=== PATIENT | male | born 1940 | race Caucasian/White ===

== ENCOUNTER 2016-11-25 19:50 | Observation (INO) | payer OTHER ==
--- NOTE | 2016-11-25 20:05 | EDPHY ---
General - History Smoking Status: Never smoked Narrative: CHIEF COMPLAINT: Fall from chair HISTORY OF PRESENT ILLNESS: Patient arrives by EMS after reportedly falling from his chair. Patient resides at [facility] has an independent living resident. Reportedly, the patient was drinking alcohol this evening during the movie when he fell out of his chair. There is no A&O entirely what happened is he is amnestic to events. EMS said that he was unsteady on his feet and appeared intoxicated. He has skin tears over his elbows. He does not provide any specific complaints. He is awake and conversing with this, but he will not provide any meaningful information. He is moving all 4 extremities spontaneously and very forcefully. No other history obtainable. He seen at time of arrival. REVIEW OF SYSTEMS: Ten systems reviewed and are negative unless otherwise noted in the HPI EXAMINATION General Appearance: Alert, no distress Head: normocephalic, atraumatic. No hematoma. No depression. No Jones sign. No raccoon eyes. Eyes: Pupils equal and round, no conjunctival pallor or injection. Bilateral arcus senilis ENT, Mouth: Mucous membranes moist. Uvula midline. No erythema or edema. Neck: Normal inspection, supple, non-tender. No crepitus. No step-off. No deformity. Respiratory: Lungs are clear to auscultation. No wheezing, rhonchi or crackles. Cardiovascular: Regular rate and rhythm. No murmur. Pulses intact distally symmetrically in the radial and DP 2+ Gastrointestinal: Abdomen is soft and nontender. No tympany. No rigidity. No guarding. Back: non-tender, no bony abnormalities. No signs of trauma. No crepitus, step -off or deformity. Neurological: Alert to person. Disoriented to place and time. No dysmetria. No pronator drift. Skin: Warm and dry, no rash. Superficial skin tears on the posterior elbows bilaterally. No lacerations noted. Extremities: Ranging all 4 extremities spontaneously with symmetric strength. Following commands with the legs and arms. Psychiatric: Appears intoxicated DIFFERENTIAL DIAGNOSES: Including but not limited to closed head injury, intracranial hemorrhage, concussion, sprain, strain, fracture, intoxication, skin tears MDM: 8:05 p.m. Apparent mechanical fall from seated position. The patient appears very intoxicated and is having difficulty ambulating without assistance. Given his intoxication I have ordered CT scans of the head and neck as well as a chest x- ray. He is moving all 4 extremities spontaneously without hesitation and good strength. No other outward signs of trauma other than mild skin tears over the elbows. 8:55 p.m. Laboratory studies are unremarkable with exception of blood alcohol of 250. CT scans and chest x-ray are pending at this time. Given the level intoxication I am not comfortable sending the patient home to his own accord. I will plan for admission for observation until the patient is able to ambulate on his own. 9:00 p.m. Notified by radiologist Dr. Nick. CT scan of the head is unremarkable for any acute findings, there is noted atrophy. CT scan of the cervical spine is unremarkable. There is a questionable deformity on T1. After discussing the history with radiologist, she feels that this is a negative scan at this time. 9:35 p.m. Patient is acutely intoxicated with blood alcohol 247. He is unable to ambulate on his own. He is not stable for discharge home to his own care at this time. CT scans are unremarkable. Chest x-ray as interpreted by me as no acute findings. Discussed the case with Dr. Savage, and she will admit the patient observation. SUPERVISION: This patient was independently evaluated without direct examination by the attending physician. Case was discussed with attending physician. Case discussed with Dr. Vasquez. (Wayne Treviño) - Diagnostics Imaging Results: Imaging Impressions Cervical Spine CT 11/25/16 20:00 Impression: Normal. Findings and recommendations discussed with Wayne Treviño at 2045 hour, 11/25. Final report concurs with initial preliminary interpretation. Head CT 11/25/16 20:00 Impression: Atrophy and microvascular ischemic disease. Findings and recommendations discussed with Wayne Treviño at 2100 hour, 11/25. Final report concurs with initial preliminary interpretation. Discussion: PHYSICIAN DOCUMENTATION: The patient was evaluated and managed by the Physician Commercial Roofer. My co- signature indicates that I have reviewed this chart and I agree with the findings and plan of care as documented. I am the secondary supervising physician. (Triston Vasquez) - Objective Vital Signs: Initial Vital Signs Temperature (C) 96.8 F 11/25/16 19:59 Heart Rate 89 11/25/16 19:59 Respiratory Rate 16 11/25/16 19:59 Blood Pressure 133/78 H 11/25/16 19:59 O2 Sat (%) 93 11/25/16 19:59 O2 Delivery Mode Room Air Allergies/Adverse Reactions: No Known Allergies Allergy (Verified 06/04/16 11:18) Home Medications: Medication Instructions Recorded Acetaminophen [Tylenol 325mg (*)] 650 mg PO Q4HRS PRN #0 tab 06/05/16 oxyCODONE/APAP 5/325 [Percocet 1 - 2 tab PO Q4H PRN #12 tab 06/08/16 5/325 (*)] Lisinopril [Zestril 5 mg (*)] 5 mg PO DAILY 11/25/16 Laboratory Results: Laboratory Results 11/25/16 19:56 11/25/16 19:56 11/25/16 11/25/16 11/25/16 19:56 19:56 19:56 WBC 7.76 10^3/uL 10^3/uL (3.80-9.50) RBC 4.10 10^6/uL L 10^6/uL (4.40-6.38) Hgb 14.2 g/dL g/dL (13.7-17.5) Hct 40.5 % % (40.0-51.0) MCV 98.8 fL fL (81.5-99.8) MCH 34.6 pg H pg (27.9-34.1) MCHC 35.1 g/dL g/dL (32.4-36.7) RDW 13.2 % % (11.5-15.2) Plt Count 161 10^3/uL 10^3/uL (150-400) MPV 10.9 fL fL (8.7-11.7) Neut % (Auto) 56.4 % % (39.3-74.2) Lymph % (Auto) 30.9 % % (15.0-45.0) [place] % (Auto) 11.2 % % (4.5-13.0) Eos % (Auto) 0.8 % % (0.6-7.6) Baso % (Auto) 0.6 % % (0.3-1.7) Nucleat RBC Rel Count 0.0 % % (0.0-0.2) Absolute Neuts (auto) 4.37 10^3/uL 10^3/uL (1.70-6.50) Absolute Lymphs (auto) 2.40 10^3/uL 10^3/uL (1.00-3.00) Absolute Monos (auto) 0.87 10^3/uL H 10^3/uL (0.30-0.80) Absolute Eos (auto) 0.06 10^3/uL 10^3/uL (0.03-0.40) Absolute Basos (auto) 0.05 10^3/uL 10^3/uL (0.02-0.10) Absolute Nucleated RBC 0.00 10^3/uL 10^3/uL (0-0.01) Immature Gran % 0.1 % % (0.0-1.1) Immature Gran # 0.01 10^3/uL 10^3/uL (0.00-0.10) PT 14.7 SEC SEC (12.0-15.0) INR 1.15 (0.83-1.16) APTT 33.5 SEC SEC (23.0-38.0) Sodium 142 mEq/L mEq/L (134-144) Potassium 4.4 mEq/L mEq/L (3.5-5.2) Chloride 108 mEq/L mEq/L (97-110) Carbon Dioxide 20 mEq/l L mEq/l (22-31) Anion Gap 14 mEq/L mEq/L (8-16) BUN 16 mg/dL mg/dL (7-23) Creatinine 1.1 mg/dL mg/dL (0.7-1.3) Estimated GFR > 60 Glucose 86 mg/dL mg/dL (70-100) Calcium 9.3 mg/dL mg/dL (8.5-10.4) Ethyl Alcohol 247 mg/dL H mg/dL (0-10) Medications Given: Discontinued Medications Sodium Chloride (Ns) 500 mls @ 0 mls/hr IV ONCE ONE PRN Reason: Wide Open Stop: 11/25/16 20:08 Last Admin: 11/25/16 20:45 Dose: 500 mls Departure - Departure Disposition: [facility] Acute Clinical Impression: Skin tear Acute alcohol intoxication Qualifiers: Complication of substance-induced condition: uncomplicated Qualified Code(s): F10.120 - Alcohol abuse with intoxication, uncomplicated Closed head injury Qualifiers: Encounter type: initial encounter Qualified Code(s): S09.90XA - Unspecified injury of head, initial encounter Condition: Good Referrals: JENY DUBOSE [Other] - As per Instructions
[2016-11-25] MEDS ORDERED: NS 500 ML IV ONE (20:07)
[2016-11-25 20:10] LABS: % IMMATURE GRANULYOCYTES 0.1 % (0.0-1.1); ABSOLUTE IMMATURE GRANULOCYTES 0.01 10^3/uL (0.00-0.10); ADD DIFF? NO; ADD MORPH? NO; ADD SCAN? NO; ATYPICAL LYMPHOCYTE FLAG 30 (0-99); FRAGMENT RBC FLAG 0 (0-99); HEMATOCRIT 40.5 % (40.0-51.0); HEMOGLOBIN 14.2 g/dL (13.7-17.5); LEFT SHIFT FLG 0 (0-99); LIPEMIA HEMOLYSIS FLAG 90 (0-99); MEAN CELL HEMOGLOBIN 34.6 pg (27.9-34.1); MEAN CELL HEMOGLOBIN CONCENTR. 35.1 g/dL (32.4-36.7); MEAN CELL VOLUME 98.8 fL (81.5-99.8); MEAN PLATELET VOLUME 10.9 fL (8.7-11.7); PLATELET CLUMPS FLAG 0 (0-99); PLATELET COUNT 161 10^3/uL (150-400); RED CELL DISTRIBUTION WIDTH 13.2 % (11.5-15.2)
[2016-11-25 20:15] LABS: ANION GAP 14 mEq/L (8-16); CALCIUM 9.3 mg/dL (8.5-10.4); CARBON DIOXIDE 20 mEq/l (22-31); CHLORIDE 108 mEq/L (97-110); CREATININE 1.1 mg/dL (0.7-1.3); ETHANOL SERUM 247 mg/dL (0-10); GLOMERULAR FILTRATION RATE > 60; GLUCOSE 86 mg/dL (70-100); POTASSIUM 4.4 mEq/L (3.5-5.2); SODIUM 142 mEq/L (134-144)
[2016-11-25 20:16] LABS: INR 1.15 (0.83-1.16); PROTIME(PATIENT) 14.7 SEC (12.0-15.0)
[2016-11-25 20:17] LABS: APTT 33.5 SEC (23.0-38.0)
[2016-11-25] MEDS ORDERED: ACETAMINOPHEN 325 MG TAB PO PRN (21:40)
[2016-11-25] MEDS ORDERED: ONDANSETRON DISINTEGRATING 4 MG TAB PO PRN (21:40)
[2016-11-25] MEDS ORDERED: ONDANSETRON 4 MG/2 ML VIAL IVP PRN (21:40)
[2016-11-25] MEDS ORDERED: NS 1,000 ML IV SCH (21:45)
--- NOTE | 2016-11-25 22:21 | GHP ---
[f rep st] HISTORY AND PHYSICAL DATE OF ADMISSION: 11/25/2016 CHIEF COMPLAINT: Falling out of a chair. HISTORY OF PRESENT ILLNESS: This 76-year-old male is a current resident at [facility]. The patient was enjoying movie night apparently at his housing facility and consumed signifi cant alcohol. He was brought in as he fell out of a chair. Based on reports by observers, he did not hit his head, did obtain some skin tears on his elbows. Upon my evaluation, patient is denying any headache, any vision changes, any dysphagia, any dizziness, any chest pain, palpitations, shortness of breath, cough, abdominal pain, nausea, vomiting. PAST MEDICAL HISTORY: History of alcohol use/abuse in the past. Bilateral hip fractures with hip r eplacements. FAMILY HISTORY: Negative for heart disease. SOCIAL HISTORY: Patient lives at [facility]. Denies tobacco. Actively drinks alcohol. Denies ill icit drugs or marijuana. REVIEW OF SYSTEMS: A 10-point review of systems is negative with the exception of that reported in the HPI. PHYSICAL EXAMINATION: VITAL SIGNS: Blood pressure 133/78, heart rate 89, respiratory rate 16, 93% on room air. GENERAL: This is a thin-appearing elderly male in no distress lying flat in bed. HEEN T: Notable for poor dentition. Eye exam is negative for any icterus. CARDIAC: Patient is regular rate and rhythm. PULMONARY: He has good respiratory effort, is clear to auscultation bilaterally. GASTROINTESTINAL: Positive bowel sounds. Abdomen is soft and nontender. MUSCULOSKELETAL: Negative for any lower extremity edema. SKIN: There are skin tears at the elbows. Otherwise, no obvious in juries. NEUROLOGIC: He is acutely intoxicated, appears euphoric. LABORATORY DATA: White count 7.7, hematocrit 40.5, platelets of 161. Creatinine 1.1. Blood alcohol 247. Noncontrast CT of the head, which I personally reviewed and interpreted, shows atrophy and mi crovascular disease. No acute bleeds. Chest x-ray, which I personally reviewed and interpreted, fannie ws no acute infiltrates or edema. ASSESSMENT AND PLAN: This is a 76-year-old male, presenting with acute alcohol intoxication. 1. Acute alcohol intoxication. The patient is not safe to discharge back home. Will observe, hydr ate and monitor overnight. Will avoid additional sedating medications. 2. Hypertension. Will continue his BRUCE inhibitor without change. 3. Prophylaxis with Lovenox. 4. Diet, regular. DISPOSITION: I expect in less than 2 midnights when the patient liane up and is safe for dispositi on in the morning. I discussed the case with the emergency room physician. Patient will be triaged for observation to the medical floor. /[id number]/MODL
[2016-11-26 05:05] LABS: % IMMATURE GRANULYOCYTES 0.2 % (0.0-1.1); ABSOLUTE IMMATURE GRANULOCYTES 0.01 10^3/uL (0.00-0.10); ADD DIFF? NO; ADD MORPH? NO; ADD SCAN? NO; ATYPICAL LYMPHOCYTE FLAG 30 (0-99); FRAGMENT RBC FLAG 0 (0-99); HEMATOCRIT 39.3 % (40.0-51.0); HEMOGLOBIN 13.5 g/dL (13.7-17.5); LEFT SHIFT FLG 0 (0-99); LIPEMIA HEMOLYSIS FLAG 90 (0-99); MEAN CELL HEMOGLOBIN 33.9 pg (27.9-34.1); MEAN CELL HEMOGLOBIN CONCENTR. 34.4 g/dL (32.4-36.7); MEAN CELL VOLUME 98.7 fL (81.5-99.8); MEAN PLATELET VOLUME 10.6 fL (8.7-11.7); PLATELET CLUMPS FLAG 0 (0-99); PLATELET COUNT 152 10^3/uL (150-400); RED BLOOD CELL COUNT 3.98 10^6/uL (4.40-6.38); RED CELL DISTRIBUTION WIDTH 13.2 % (11.5-15.2)
[2016-11-26 05:15] LABS: ANION GAP 9 mEq/L (8-16); CALCIUM 8.8 mg/dL (8.5-10.4); CARBON DIOXIDE 21 mEq/l (22-31); CHLORIDE 115 mEq/L (97-110); CREATININE 0.9 mg/dL (0.7-1.3); GLOMERULAR FILTRATION RATE > 60; GLUCOSE 60 mg/dL (70-100); POTASSIUM 4.4 mEq/L (3.5-5.2); SODIUM 145 mEq/L (134-144)
[2016-11-26 08:00] VITALS: RESP 16; TEMP 97.9
[2016-11-26] MEDS ORDERED: ENOXAPARIN 40 MG/0.4 ML SYR SC SCH (09:00)
[2016-11-26] MEDS ORDERED: LISINOPRIL 5 MG TAB PO SCH (09:00)
--- NOTE | 2016-11-26 12:53 | GDS ---
[f rep st] DISCHARGE SUMMARY DISCHARGE DIAGNOSES: 1. Acute alcohol intoxication. 2. Hypertension. 3. Fall. STUDIES AND PROCEDURES DONE: 1. CT of the cervical spine. 2. Chest x-ray. 3. CT of the head. PHYSICAL EXAMINATION: GENERAL: The patient is alert. VITAL SIGNS: Afebrile at 36.6, pulse is 90, respiratory rate 16, blood pressure is 107/56, saturating 94% on room air. I have seen and evaluated the patient on the day of discharge. HOSPITAL COURSE: The patient is a 76-year-old male who resides at [facility]. During movie night he had a little too much alcohol to drink. He was presented to the emergency room after falling from a chair. He was evaluated and diagnosed with: 1. Acute alcoholic intoxication. This has completely resolved. The patient feels fine and has returned to his baseline. 2. History of hypertension. This is stable during this hospital course. DISPOSITION: Patient will be discharged home to return to [facility] where he normally resides. FOLLOWUP: Follow up will be in the outpatient setting with his primary care physician. DISCHARGE MEDICATIONS: Please refer to EMR form. I have not provided any prescriptions nor discontinued any of the patient's previously prescribed home medications to the best of my knowledge. /[id number]/MODL MTDD
[2016-11-26 13:05] VITALS: BP 158/75; PULSE 89; O2SAT 96
== END 2016-11-26 15:27 | disposition home or self-care (01) ==
LOC: EDUNIT# → F3N 22:55
PROVIDERS: ADMIT Hospitalist; ATTEND Hospitalist
DX: F10.129 Alcohol abuse with intoxication, unspecified (principal); I10 Essential (primary) hypertension; S09.90XA Unspecified injury of head, initial encounter; W07.XXXA Fall from chair, initial encounter; Y90.8 Blood alcohol level of 240 mg/100 ml or more
CPT/HCPCS: 70450; 71010; 72125; 97161; 97165; G0378; G0397; G8978; G8979; G8980; G8987; G8988; G8989; J1650; G0480

== ENCOUNTER 2017-01-06 11:22 | Emergency (ER) | payer OTHER ==
[2017-01-06 11:38] VITALS: RESP 18
--- NOTE | 2017-01-06 13:12 | EDPHY ---
H & P Stated Complaint: Fall, finger lac, head abrasion Time Seen by Provider: 01/06/17 13:00 HPI/ROS: CHIEF COMPLAINT: Fall finger laceration HISTORY OF PRESENT ILLNESS: This is a 76-year-old male presenting to the ER versus EMS. Patient states he was walking a block away from assisted nursing facility when he tripped and fell hitting the right hand, patient states no LOC. EMS states patient did have some scraping to the left side of his head so there was a question of whether patient hit his head and possible LOC. Patient denies any headache nausea vomiting chest pain shortness of breath REVIEW OF SYSTEMS: Constitutional: No fever, no chills. Eyes: No discharge. ENT: No sore throat. Cardiovascular: No chest pain, no palpitations. Respiratory: No cough, no shortness of breath. Gastrointestinal: No abdominal pain, no vomiting. Genitourinary: No difficulty urinating Musculoskeletal: No back pain. Skin tear with laceration to right index finger Skin: No rashes. Neurological: No headache. Source: Patient - Personal History Current Tetanus/Diphtheria Vaccine: Yes Current Tetanus Diphtheria and Acellular Pertussis (TDAP): Yes - Medical/Surgical History Hx Asthma: No Hx Chronic Respiratory Disease: No Hx Diabetes: No Hx Cardiac Disease: Yes Hx Renal Disease: No Hx Cirrhosis: No Hx Alcoholism: No Hx HIV/AIDS: No Hx Splenectomy or Spleen Trauma: No Other PMH: PMH: Hypertension, TB (pt denies). PSH: bilateral hip replacements - Social History Smoking Status: Never smoked - Physical Exam Exam: General Appearance: Alert, no distress. Eyes: Pupils equal and round no pallor or injection. HEENT: Abrasion noted to left parietal with bruising. No tongue lacerations, no malocclusion Mucous membranes moist. Respiratory: There are no retractions, lungs are clear to auscultation. Cardiovascular: Regular rate and rhythm. Gastrointestinal: Abdomen is soft and nontender, no masses, bowel sounds normal. Neurological: No focal deficits. Ambulatory with cane assist Skin: Warm and dry, no rashes. Musculoskeletal: Vertebral cervical spine nontender with full range of motion right index finger skin tear Extremities: symmetrical, full range of motion. Psychiatric: Patient is oriented X 3, there is no agitation. Constitutional: Initial Vital Signs Temperature (C) 36.9 C 01/06/17 11:36 Heart Rate 82 01/06/17 11:36 Respiratory Rate 18 01/06/17 11:36 Blood Pressure 119/91 H 01/06/17 11:36 O2 Sat (%) 92 01/06/17 11:36 O2 Delivery Mode Room Air Allergies/Adverse Reactions: No Known Allergies Allergy (Verified 06/04/16 11:18) Home Medications: Medication Instructions Recorded Lisinopril [Zestril 5 mg (*)] 5 mg PO DAILY 11/25/16 Acetaminophen [Tylenol 325mg (*)] 650 mg PO Q4HRS PRN #0 tab 11/26/16 Medical Decision Making - Diagnostics Imaging Results: Imaging Impressions Head CT 01/06/17 13:11 Impression: 1. Stable moderate atrophy. 2. No hemorrhage, mass effect, or definite acute peripheral infarct. 3. Stable mild microvascular ischemic disease. 4. Stable paranasal sinuses disease as detailed above. Rule out underlying nasal polyps. Findings discussed with Kiley Varela NP at 13:54 hour, 01/06/2017. ED Course/Re-evaluation: Discussed the plan of care: Wound irrigation, CT head. Discussed negative CT head results, dressing placed finger discharge home---> stable Differential Diagnosis: Other differential diagnosis considered but not limited to subarachnoid hemorrhage, skull fracture, and CVA Departure - Departure Disposition: Home, Routine, Self-Care Clinical Impression: Finger laceration Qualifiers: Encounter type: initial encounter Qualified Code(s): S61.219A - Laceration without foreign body of unspecified finger without damage to nail, initial encounter Condition: Good Instructions: Laceration (ED), Finger Laceration (ED), Steristrips (ED) Additional Instructions: Discussed discharge instructions 1. The keep wound clean and dry, leave initial dressing on for 24 hours 2. Monitor for any changes in mental status, blurred vision increased headache 3. Keep abrasions clean and dry Referrals: Patient,NotPresent [Primary Care Provider] - As per Instructions [facility],. [Clinic] - As per Instructions
[2017-01-06 14:14] VITALS: BP 157/90; PULSE 93; TEMP 98.1; O2SAT 93
== END 2017-01-06 14:14 | disposition home or self-care (01) ==
LOC: EDUNIT#
DX: S61.210A Laceration without foreign body of right index finger without damage to nail, initial encounter (principal); I10 Essential (primary) hypertension; W01.198A Fall on same level from slipping, tripping and stumbling with subsequent striking against other object, initial encounter; Y92.129 Unspecified place in nursing home as the place of occurrence of the external cause; Y99.8 Other external cause status; Y93.01 Activity, walking, marching and hiking

== ENCOUNTER 2017-01-09 22:40 | Inpatient (IN) | payer OTHER ==
[2017-01-09] MEDS ORDERED: NS 1,000 ML IV ONE ×2 (22:46→23:34)
[2017-01-09 22:56] LABS: % IMMATURE GRANULYOCYTES 0.6 % (0.0-1.1); ABSOLUTE IMMATURE GRANULOCYTES 0.08 10^3/uL (0.00-0.10); ADD DIFF? NO; ADD MORPH? NO; ADD SCAN? NO; ATYPICAL LYMPHOCYTE FLAG 0 (0-99); FRAGMENT RBC FLAG 0 (0-99); HEMATOCRIT 39.6 % (40.0-51.0); HEMOGLOBIN 13.8 g/dL (13.7-17.5); LEFT SHIFT FLG 0 (0-99); LIPEMIA HEMOLYSIS FLAG 90 (0-99); MEAN CELL HEMOGLOBIN CONCENTR. 34.8 g/dL (32.4-36.7); MEAN CELL VOLUME 97.5 fL (81.5-99.8); MEAN PLATELET VOLUME 11.2 fL (8.7-11.7); PLATELET CLUMPS FLAG 0 (0-99); PLATELET COUNT 163 10^3/uL (150-400); RED BLOOD CELL COUNT 4.06 10^6/uL (4.40-6.38)
--- NOTE | 2017-01-09 23:06 | EDPHY ---
H & P Stated Complaint: possibly down for three days-incontinent of urine Time Seen by Provider: 01/09/17 23:01 HPI/ROS: HPI The patient presents brought in by ambulance after being found down in his bathroom of his assisted living facility [facility]. It is unclear how long he was down, somewhere between 1 and 3 days. He was eventually found by staff at his assisted living. He said he had a fall while drinking alcohol and was lodged between the bathtub and some other part of his bathroom. He cried for help but no one found him until today. He is complaining of generalized weakness which he feels throughout his body. This is been constant and is getting progressively worse. He denies any pain. He denies any headache. He does feel slightly dizzy. He denies any head injury. He was last in the emergency room just 3 days ago after another fall. CT scan of his head was normal at that time. REVIEW OF SYSTEMS Constitutional: No fever, no chills. Eyes: No discharge. ENT: No sore throat. Cardiovascular: No chest pain, no palpitations. Respiratory: No cough, no shortness of breath. Gastrointestinal: No abdominal pain, no vomiting. Genitourinary: No hematuria. Musculoskeletal: No back pain. Skin: No rashes. Neurological: No headache. PMHx: Hypertension, bilateral knee replacements Soc Hx: Chronic alcohol abuse PHYSICAL General Appearance: Alert, tired appearing Eyes: Pupils equal and round no pallor or injection ENT, Mouth: Mucous membranes dry Respiratory: There are no retractions, lungs are clear to auscultation Cardiovascular: Regular rate and rhythm Gastrointestinal: Abdomen is soft and non-tender, no masses, bowel sounds normal Neurological: A&O, moves all extremities Skin: Warm and dry, back with skin breakdown overlying his spine Musculoskeletal: Neck is supple non tender Extremities: symmetrical, full range of motion Psychiatric: Patient is oriented X 3, there is no agitation Source: Patient, EMS Exam Limitations: No limitations - Personal History Current Tetanus Diphtheria and Acellular Pertussis (TDAP): Yes - Medical/Surgical History Hx Asthma: No Hx Chronic Respiratory Disease: No Hx Diabetes: No Hx Cardiac Disease: Yes Hx Renal Disease: No Hx Cirrhosis: No Hx Alcoholism: No Hx HIV/AIDS: No Hx Splenectomy or Spleen Trauma: No Other PMH: PMH: Hypertension, TB (pt denies). PSH: bilateral hip replacements - Social History Smoking Status: Never smoked Constitutional: Initial Vital Signs Temperature (C) 36.6 C 01/09/17 22:49 Heart Rate 62 01/09/17 22:49 Respiratory Rate 16 01/09/17 22:49 Blood Pressure 143/77 H 01/09/17 22:49 O2 Sat (%) 92 01/09/17 22:49 O2 Delivery Mode Room Air Allergies/Adverse Reactions: No Known Allergies Allergy (Verified 01/09/17 22:49) Home Medications: Medication Instructions Recorded Lisinopril [Zestril 5 mg (*)] 5 mg PO DAILY 11/25/16 Acetaminophen [Tylenol 325mg (*)] 650 mg PO Q4HRS PRN #0 tab 11/26/16 Medical Decision Making - Diagnostics Imaging Results: Imaging Impressions Chest X-Ray 01/09/17 23:06 Impression: Clear lungs. No failure or effusion. Head CT 01/09/17 23:07 Impression: 1. No acute intracranial hemorrhage or fracture. 2. Atrophy and white matter disease unchanged since 3 days prior. Findings discussed with Emergency Department physician, Margoth Gale MD at 01/10/2017 0:02. Imaging: Discussed imaging studies w/ supervisor mending Radiologist Differential Diagnosis: This is a 76-year-old male with chronic alcohol use, hypertension, who resides at an assisted living facility who presents after a fall which occurred several days ago, found down at his assisted living. He thinks he was down for several days, though is not exactly sure. He has not had any aches or pains but generally feels weak. He did not have anything to eat or drink during this time period. Differential diagnosis includes rhabdomyolysis, closed head injury, electrolyte disturbance, dehydration. In the emergency room labs and studies were checked. His CK level was in the 9000., because of this he was hydrated with 2 L of normal saline. He had no improvement in his weakness and was unable to properly sit up because he was feeling so weak. He normally walks independently. He is not suitable for discharge at this time. The case was discussed with the hospitalist Dr. Savage who will admit the patient. I have ordered him a bed in the hospital. - Data Points Laboratory Results: Laboratory Results 01/09/17 22:52 01/09/17 22:52 01/09/17 01/09/17 01/09/17 22:52 22:52 22:52 WBC 14.40 10^3/uL H 10^3/uL (3.80-9.50) RBC 4.06 10^6/uL L 10^6/uL (4.40-6.38) Hgb 13.8 g/dL g/dL (13.7-17.5) Hct 39.6 % L % (40.0-51.0) MCV 97.5 fL fL (81.5-99.8) MCH 34.0 pg pg (27.9-34.1) MCHC 34.8 g/dL g/dL (32.4-36.7) RDW 13.0 % % (11.5-15.2) Plt Count 163 10^3/uL 10^3/uL (150-400) MPV 11.2 fL fL (8.7-11.7) Neut % (Auto) 85.8 % H % (39.3-74.2) Lymph % (Auto) 6.4 % L % (15.0-45.0) [place] % (Auto) 7.1 % % (4.5-13.0) Eos % (Auto) 0.0 % L % (0.6-7.6) Baso % (Auto) 0.1 % L % (0.3-1.7) Nucleat RBC Rel Count 0.0 % % (0.0-0.2) Absolute Neuts (auto) 12.37 10^3/uL H 10^3/uL (1.70-6.50) Absolute Lymphs (auto) 0.92 10^3/uL L 10^3/uL (1.00-3.00) Absolute Monos (auto) 1.02 10^3/uL H 10^3/uL (0.30-0.80) Absolute Eos (auto) 0.00 10^3/uL L 10^3/uL (0.03-0.40) Absolute Basos (auto) 0.01 10^3/uL L 10^3/uL (0.02-0.10) Absolute Nucleated RBC 0.00 10^3/uL 10^3/uL (0-0.01) Immature Gran % 0.6 % % (0.0-1.1) Immature Gran # 0.08 10^3/uL 10^3/uL (0.00-0.10) Sodium 138 mEq/L mEq/L (134-144) Potassium 5.0 mEq/L mEq/L (3.5-5.2) Chloride 104 mEq/L mEq/L (97-110) Carbon Dioxide 22 mEq/l mEq/l (22-31) Anion Gap 12 mEq/L mEq/L (8-16) BUN 38 mg/dL H mg/dL (7-23) Creatinine 0.9 mg/dL mg/dL (0.7-1.3) Estimated GFR > 60 Glucose 121 mg/dL H mg/dL (70-100) Calcium 9.4 mg/dL mg/dL (8.5-10.4) Total Bilirubin Conjugated Bilirubin Unconjugated Bilirubin AST ALT Alkaline Phosphatase Creatine Kinase 9067 IU/L H IU/L (0-224) CK-MB (CK-2) Fraction 44.70 ng/mL H ng/mL (0-3.19) CK-MB (CK-2) % 0.5 % % (0.0-4.0) Creatine Kinase Interp NEGATIVE (NEGATIVE) Total Protein Albumin Lipase Ethyl Alcohol < 10 mg/dL mg/dL < 10 mg/dL mg/dL (0-10) (0-10) 01/09/17 22:50 WBC RBC Hgb Hct MCV MCH MCHC RDW Plt Count MPV Neut % (Auto) Lymph % (Auto) [place]oard % (Auto) Eos % (Auto) Baso % (Auto) Nucleat RBC Rel Count Absolute Neuts (auto) Absolute Lymphs (auto) Absolute Monos (auto) Absolute Eos (auto) Absolute Basos (auto) Absolute Nucleated RBC Immature Gran % Immature Gran # Sodium Potassium Chloride Carbon Dioxide Anion Gap BUN Creatinine Estimated GFR Glucose Calcium Total Bilirubin 1.5 mg/dL H mg/dL (0.1-1.4) Conjugated Bilirubin 0.6 mg/dL H mg/dL (0.0-0.5) Unconjugated Bilirubin 0.9 mg/dL mg/dL (0.0-1.1) AST 405 IU/L H IU/L (17-59) ALT 120 IU/L H IU/L (21-72) Alkaline Phosphatase 81 IU/L IU/L (38-126) Creatine Kinase CK-MB (CK-2) Fraction CK-MB (CK-2) % Creatine Kinase Interp Total Protein 7.3 g/dL g/dL (6.3-8.2) Albumin 4.1 g/dL g/dL (3.5-5.0) Lipase 99.0 IU/L IU/L (23-300) Ethyl Alcohol Medications Given: Discontinued Medications Sodium Chloride (Ns) 1,000 mls @ 0 mls/hr IV ONCE ONE PRN Reason: Wide Open Stop: 01/09/17 22:47 Last Admin: 01/09/17 22:55 Dose: 1,000 mls Sodium Chloride (Ns) 1,000 mls @ 0 mls/hr IV ONCE ONE PRN Reason: Wide Open Stop: 01/09/17 23:35 Last Admin: 01/09/17 23:35 Dose: 1,000 mls Departure - Departure Disposition: [facility] Inpatient Acute Clinical Impression: Skin breakdown Rhabdomyolysis Qualifiers: Rhabdomyolysis type: non-traumatic Qualified Code(s): M62.82 - Rhabdomyolysis Fall Qualifiers: Encounter type: initial encounter Qualified Code(s): W19.XXXA - Unspecified fall, initial encounter Condition: Fair
[2017-01-09 23:08] LABS: ANION GAP 12 mEq/L (8-16); CALCIUM 9.4 mg/dL (8.5-10.4); CARBON DIOXIDE 22 mEq/l (22-31); CHLORIDE 104 mEq/L (97-110); CREATININE 0.9 mg/dL (0.7-1.3); ETHANOL SERUM < 10 mg/dL (0-10); GLOMERULAR FILTRATION RATE > 60; GLUCOSE 121 mg/dL (70-100); SODIUM 138 mEq/L (134-144)
--- NOTE | 2017-01-09 23:19 | CPEKG ---
Heart Rate: 110 RR Interval: 545 P-R Interval: 172 QRSD Interval: 128 QT Interval: 360 QTC Interval: 488 P [place]: 57 QRS [place]: -7 T Wave [place]: 31 EKG Severity - ABNORMAL ECG - EKG Impression: SINUS TACHYCARDIA EKG Impression: VENTRICULAR PREMATURE COMPLEX EKG Impression: PROBABLE LEFT ATRIAL ABNORMALITY EKG Impression: RIGHT BUNDLE BRANCH BLOCK Electronically Signed By: Margoth Gale 10-Jan-2017 07:17:34
[2017-01-09 23:32] LABS: CK-MB INTERPRETATION NEGATIVE (NEGATIVE)
[2017-01-10 00:12] LABS: ALBUMIN 4.1 g/dL (3.5-5.0); BILIRUBIN,TOTAL 1.5 mg/dL (0.1-1.4); BILIRUBIN-CONJUGATED 0.6 mg/dL (0.0-0.5); BILIRUBIN-UNCONJUGATED 0.9 mg/dL (0.0-1.1); TOTAL PROTEIN 7.3 g/dL (6.3-8.2)
[2017-01-10 01:10] LABS: ETHANOL SERUM < 10 mg/dL (0-10)
[2017-01-10] MEDS ORDERED: ONDANSETRON 4 MG/2 ML VIAL IVP PRN (01:56)
[2017-01-10] MEDS ORDERED: ONDANSETRON DISINTEGRATING 4 MG TAB PO PRN (01:56)
--- NOTE | 2017-01-10 02:48 | GHP ---
[f rep st] HISTORY AND PHYSICAL DATE OF ADMISSION: 01/09/2017 CHIEF COMPLAINT: Found down. HISTORY OF PRESENT ILLNESS: A 76-year-old male with a history of alcohol abuse in the past, who pre sents from his assisted living having been found down. The details of his duration of being down ar e unclear. Patient is not able to give us details about a mechanical fall or any clear trauma. Durán s feel sore and feel very weak. He denies any chest pain, shortness of breath, abdominal discomfort . Denies any nausea or vomiting, any recent diarrhea, any dysuria, hematuria, numbness or tingling anywhere, but does describe an inability to sit up or ambulate safely because of fatigue. PAST MEDICAL HISTORY: 1. Alcohol abuse. 2. Hypertension. 3. Bilateral hip fractures with hip replacements. FAMILY HISTORY: Positive for alcoholism. SOCIAL HISTORY: Negative for tobacco. Does drink alcohol. He cannot describe exactly the daily am ount. Denies any marijuana or illicit drug use. REVIEW OF SYSTEMS: A 10-point review of systems is negative with the exception of that reported in the HPI. PHYSICAL EXAMINATION: VITAL SIGNS: Blood pressure 143/77, heart rate 62, respiratory rate 16, 92% on room air. GENERAL: This is a thin-appearing elderly male, in no acute distress. HEENT: Notabl e for dry mucous membranes. Eye exam is negative for any icterus. CARDIAC: Patient is regular rat e and rhythm. PULMONARY: He is clear to auscultation bilaterally. GASTROINTESTINAL: Positive bow el sounds. ABDOMEN: Soft and nontender in all 4 quadrants. MUSCULOSKELETAL: Negative for any low er extremity edema. SKIN: Does show some breakdown on his back and side. NEUROLOGIC: He is alert and oriented x3. Does have a mild tremor on my exam. PSYCHIATRIC: He is pleasant and cooperative on interview and examination. IMAGING DATA: Noncontrast CT of the head, which I personally reviewed and interpreted, shows no acu te findings. LABORATORY DATA: White count is 14, baseline appears to be 4-8. Hematocrit 39.6, platelets of 163. Sodium was 138, creatinine 0.9, BUN 38. CK of 9067. AST 405, ALT 120. Ethyl alcohol is less rehana n 10. ASSESSMENT AND PLAN: This is a 76-year-old male, presenting found down. 1. Severe weakness. The patient cannot give the details but was found down, likely was without nut rition or fluids for hours, if not days. Will aggressively fluid resuscitate, follow CK, and have P T/OT work with the patient. 2. Dehydration. Patient does have an elevated BUN and appears contracted on labs, as well as dry o n exam. Again, will fluid resuscitate and follow. Have ordered repeat CK to make sure just trendin g down overnight. 3. Alcohol abuse. Patient is sharing interest in cessation. Will write for the [facility] protocol and follow the patient for withdrawal closely. 4. Acute alcohol withdrawal. Patient does have a minor tremor on exam. Will treat with the [facility] p rotocol. 5. Acute leukocytosis. Patient does not have very many concerning review of symptoms. Urinalysis has been ordered. Otherwise, will recheck a CBC in the morning as I suspect some of this may be str ess related and will see come down with hydration alone. 6. Prophylaxis with Lovenox. DIET: Regular. DISPOSITION: Expecting greater than 2 midnights as the patient does appear to have some alcohol wit hdrawal and will likely require extended treatment. Additionally, will need therapy evaluations for safe disposition. I have discussed the case with the emergency room physician. Patient will be tr iaged to the medical-surgical floor for care. /[id number]/MODL
[2017-01-10] MEDS: NS 1,000 ML IV SCH ×3 (03:12→22:17)
[2017-01-10 05:07] LABS: % IMMATURE GRANULYOCYTES 0.6 % (0.0-1.1); ABSOLUTE IMMATURE GRANULOCYTES 0.07 10^3/uL (0.00-0.10); ADD DIFF? NO; ADD MORPH? NO; ADD SCAN? NO; ATYPICAL LYMPHOCYTE FLAG 10 (0-99); FRAGMENT RBC FLAG 0 (0-99); HEMATOCRIT 30.7 % (40.0-51.0); HEMOGLOBIN 10.9 g/dL (13.7-17.5); LEFT SHIFT FLG 0 (0-99); LIPEMIA HEMOLYSIS FLAG 90 (0-99); MEAN CELL HEMOGLOBIN 34.7 pg (27.9-34.1); MEAN CELL HEMOGLOBIN CONCENTR. 35.5 g/dL (32.4-36.7); MEAN CELL VOLUME 97.8 fL (81.5-99.8); MEAN PLATELET VOLUME 11.3 fL (8.7-11.7); PLATELET CLUMPS FLAG 0 (0-99); PLATELET COUNT 115 10^3/uL (150-400); RED BLOOD CELL COUNT 3.14 10^6/uL (4.40-6.38); RED CELL DISTRIBUTION WIDTH 13.1 % (11.5-15.2)
[2017-01-10 05:15] LABS: ANION GAP 5 mEq/L (8-16); CALCIUM 8.1 mg/dL (8.5-10.4); CARBON DIOXIDE 21 mEq/l (22-31); CHLORIDE 108 mEq/L (97-110); CREATININE 0.7 mg/dL (0.7-1.3); GLOMERULAR FILTRATION RATE > 60; GLUCOSE 86 mg/dL (70-100); MAGNESIUM 1.7 mg/dL (1.6-2.3); SODIUM 134 mEq/L (134-144)
[2017-01-10 05:48] LABS: CK-MB INTERPRETATION NEGATIVE (NEGATIVE)
[2017-01-10] MEDS: ENOXAPARIN 40 MG/0.4 ML SYR SC SCH (08:13)
--- NOTE | 2017-01-10 08:23 | WOCRNPDOC ---
WOCRN Advanced Assessment Note - Skin Integrity Problem, Advanced Assess Sacrum Pressure Injury Dressing Type: Allevyn Life Dressing Description: Clean/Dry, Intact Exudate Amount: Scant Exudate Characteristic(s): Serous Integumentary Issue Intervention: Dressing Changed Missy Wound Tissue: Erythema, Non-blanching Wound Bed Color: Purple, Red Wound Bed Constitution: Smooth Tissue Site Measurement - Head-to-Toe Length X Width X Depth (cm): 2.5x2.5x0.1 (total surface area of wound), DTI specific area: 1x1x0 Pressure Injury Stage: Deep Tissue Injury (DTI) Pressure Injury Present on Admit: Yes Skin Integrity Problem Comment: Patient sustained a mechanical fall and was down for an unknown period of time. Patient has a sacral wound that has a DTI in the middle and is surrounded by a partial thickenss opening. To the left of his sacrum is a large area where his skin has had damage/bleeding in the tissue. It measures: [id number]. It is unclear if this area is a large device related deep tissue injury from not moving in a particular position for a period of time or if it is a deep contusion. Wound care will be able distinguish this better over the next few days as the wound evolves. Left Ischial Tuberosity Dressing Type: Open to Air Site Measurement - Head-to-Toe Length X Width X Depth (cm): 6.5x5x0 Skin Integrity Problem Comment: This is likely a mechanical fall related contusion, however it may be an evolving deep tissue injury. Will follow and diagnose further over the next few days.
--- NOTE | 2017-01-10 09:09 | HOSPPROG ---
Hospitalist Progress Note Assessment/Plan: #Found down: unclear. No signs of infection, arrhythmia. CTH, CXR, UA negative. May be from Etoh w/d. #Weakness: PT/OT #Leukocytosis: denies infectious sxs. CXR and UA negative. Afebrile #Etoh abuse: counseled on cessation. He says that he wants to go to [facility]. Case management to evaluate. #Transaminitis: due to Etoh #Mild rhabdo: IVFs #Etoh w/d: CIWA #Diet: regular #DVT ppx: #Disp: warrants inpatient admission with Etoh w/d, weakness that places him at risk for fall and subsequent harm Subjective: feels sore on back Objective: Vital Signs Temp Pulse Resp BP Pulse Ox 37.2 C 95 14 139/78 H 98 01/10/17 08:00 01/10/17 08:00 01/10/17 08:00 01/10/17 08:00 01/10/17 08:00 Laboratory Results 01/10/17 04:23 01/10/17 04:23 01/09/17 01/10/17 01/11/17 05:59 05:59 05:59 Intake Total 2450 Balance 2450 - Physical Exam Constitutional: other (thin, NAD in chair) Eyes: PERRL Ears, Nose, Mouth, Throat: moist mucous membranes Cardiovascular: regular rate and rhythym, no murmur, rub, or gallop Respiratory: no respiratory distress Gastrointestinal: normoactive bowel sounds, soft, non-tender abdomen Genitourinary: no bladder fullness Skin: warm, other (bruise and skin tear on back) Musculoskeletal: full muscle strength Neurologic: other (alert to place and date, not year. Hand tremor, mild tongue fasciluation) ICD10 Worksheet Patient Problems: Problems Problem Status Onset Fall Acute Rhabdomyolysis Acute Skin breakdown Acute Acute alcohol intoxication Acute Closed head injury Acute Left hip pain Acute Skin tear Acute
[2017-01-10 14:25] LABS: COLOR YELLOW; LEUKOCYTE ESTERASE,URINE NEGATIVE (NEGATIVE); NITRITE,URINE NEGATIVE (NEGATIVE)
[2017-01-10 14:26] LABS: MUCUS 1+ /lpf (NONE-1+)
[2017-01-10] MEDS: LORazepam 2 MG/ML INJ IVP PRN (23:38)
[2017-01-11] MEDS: LORazepam 2 MG/ML INJ IVP PRN (03:54)
[2017-01-11 05:05] LABS: % IMMATURE GRANULYOCYTES 0.4 % (0.0-1.1); ABSOLUTE IMMATURE GRANULOCYTES 0.03 10^3/uL (0.00-0.10); ADD DIFF? NO; ADD MORPH? NO; ADD SCAN? NO; ATYPICAL LYMPHOCYTE FLAG 10 (0-99); FRAGMENT RBC FLAG 0 (0-99); HEMOGLOBIN 9.3 g/dL (13.7-17.5); LEFT SHIFT FLG 0 (0-99); LIPEMIA HEMOLYSIS FLAG 90 (0-99); MEAN CELL HEMOGLOBIN 33.3 pg (27.9-34.1); MEAN CELL HEMOGLOBIN CONCENTR. 34.4 g/dL (32.4-36.7); MEAN CELL VOLUME 96.8 fL (81.5-99.8); MEAN PLATELET VOLUME 11.2 fL (8.7-11.7); PLATELET CLUMPS FLAG 0 (0-99); PLATELET COUNT 101 10^3/uL (150-400); RED BLOOD CELL COUNT 2.79 10^6/uL (4.40-6.38); RED CELL DISTRIBUTION WIDTH 12.6 % (11.5-15.2)
[2017-01-11 05:24] LABS: ALANINE AMINOTRANSFERASE 92 IU/L (21-72); ALBUMIN 2.5 g/dL (3.5-5.0); ALKALINE PHOSPHATASE 50 IU/L (38-126); ANION GAP 3 mEq/L (8-16); ASPARTATE AMINOTRANSFERASE 217 IU/L (17-59); BILIRUBIN,TOTAL 1.1 mg/dL (0.1-1.4); CALCIUM 7.8 mg/dL (8.5-10.4); CARBON DIOXIDE 23 mEq/l (22-31); CHLORIDE 107 mEq/L (97-110); CREATININE 0.7 mg/dL (0.7-1.3); GLOMERULAR FILTRATION RATE > 60; GLUCOSE 83 mg/dL (70-100); MAGNESIUM 1.6 mg/dL (1.6-2.3); POTASSIUM 3.8 mEq/L (3.5-5.2); SODIUM 133 mEq/L (134-144); TOTAL PROTEIN 5.2 g/dL (6.3-8.2)
[2017-01-11] MEDS ORDERED: LISINOPRIL 5 MG TAB PO SCH (09:00)
--- NOTE | 2017-01-11 11:35 | HOSPPROG ---
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 Weakness. Acute, new problem this provider, further workup indicated. Potential etiologies include rhabdomyolysis as well as myopathy secondary to alcohol abuse resulting in patient being down for unidentified amount of time -reviewed outside records including most recent hospitalization ( 11/26/2016 discharge summary by Arabella Santo, reporting patient presented with alcohol intoxication and a fall from a chair but he was physically safe for discharge back to [facility] at that time) -get echocardiogram given significant murmur on exam -send TSH -continue to monitor serum sodium level -continue monitor CPK -continue to work aggressively with physical and occupational therapy -assess whether patient requires [facility] facility needs verses ability to return home to [facility] 2. Rhabdomyolysis. Acute, evidenced by CPK of 9000, patient reports he was down for approximately 2 days prior to seeking medical attention, improving with IV fluids 3. Hyponatremia. Suspected hypovolemic hyponatremia, patient's serum sodium level has been declining despite receiving IV normal saline, it is possible that he has an SIADH component -above cap IV fluids -send urine sodium level -continue monitor serum sodium level 4. Transaminitis. Acute, secondary to alcoholism, down trending with IV fluids , continue to monitor 5. Hypertension. Chronic, hold lisinopril given worsening hyponatremia Diet. Regular as tolerated Prophylaxis. High risk patient, Lovenox 40 Code. Full Disposition. anticipated discharge uncertain this time, requires ongoing workup as outlined above. Subjective: patient reports that he feels very weak after engaging in physical therapy Objective: Vital Signs Temp Pulse Resp BP Pulse Ox 36.5 C 72 16 134/72 H 97 01/11/17 07:30 01/11/17 07:30 01/11/17 07:30 01/11/17 07:30 01/11/17 07:30 Laboratory Results 01/11/17 04:18 01/11/17 04:18 01/10/17 01/11/17 01/12/17 05:59 05:59 05:59 Intake Total 2450 1711 250 Output Total 300 Balance 2450 1411 250 - Physical Exam Constitutional: no apparent distress, not in pain, chronically ill appearing, No uncomfortable Cardiovascular: regular rate and rhythym, systolic murmur ( 3/6 systolic murmur at the apex), No tachycardia, No edema Respiratory: no respiratory distress, no rales or rhonchi, clear to auscultation Gastrointestinal: normoactive bowel sounds, soft, non-tender abdomen, no palpable masses Neurologic: AAOx3, sensation intact bilaterally, weakness ( motor strength 4/5 bilateral upper and lower extremities) Psychiatric: not anxious, not encephalopathic, flat affect, other ( response to verbal stimuli and commands), No agitated ICD10 Worksheet Patient Problems: Problems Problem Status Onset Fall Acute Rhabdomyolysis Acute Skin breakdown Acute Acute alcohol intoxication Acute Closed head injury Acute Left hip pain Acute Skin tear Acute
[2017-01-11] MEDS: ENOXAPARIN 40 MG/0.4 ML SYR SC SCH (11:51)
[2017-01-11] MEDS: ACETAMINOPHEN 325 MG TAB PO PRN ×2 (11:51→21:36)
[2017-01-11] MEDS: LORazepam 1 MG TAB PO PRN ×2 (11:52→17:39)
--- NOTE | 2017-01-11 13:54 | ECHO ---
[id number] + + [address] : : [place] [address] : : [phone] + + Adult Echocardiographic Report + ---------+ :Name: RENEE HENNESSY JStudy Date: 01/11/2017 12:01 PM : : Hospital Admission Number: [id number] Destiny khanna: 378: :: 1940 Gender: Male Height: 68 i n : :Age: 76 yrs Race: WH Weight: 119 lb : :Reason For Study: Eval Valves : : BSA: 1.6 met ers2 : :History: Eval Murmur : + ---------+ MMode/2D Measurements \T\ Calculations IVSd: 0.91 cm LVIDd: 4.3 cm FS: 46.6 % MV Diam: 3.1 cm LVPWd: 1.1 cm LVIDs: 2.3 cm EDV(Teich): 85.3 ml ESV(Teich): 18.5 ml EF(Teich): 78.3 % Ao root diam: 3.7 cm LVOT diam: 2.1 cm ACS: 0.61 cm LVOT area: 3.5 cm2 Normal Measurement Values: + + :LVIDd (3.5-5.7cm) IVSd (0.6-1.1cm) LVPWd (0.6-1.1cm) Aortic Root (2.0-3.7cm)Left Atrium (1.5-4.0cm): :LV Vol(d) (76-115ml) LV Vol(s) (29-48ml) Ejec Fraction (50-65%)PV Shaun (0.6- 1.2m/s) TV Shaun (0.4-1.0m/s) : :MV E Shaun (0.8-1.0m/s)MV A Shaun (0.3-1.0m/s)LVOT Shaun (0.7-1.2m/s) Asc Ao Shaun ( 0.9-1.8m/s) : + + Doppler Measurements \T\ Calculations MV E max shaun: MV V2 mean: Ao V2 max: LV V1 max: 84.4 cm/sec 93.9 cm/sec 188.5 cm/sec 95.8 cm/sec MV A max shaun: MV mean PG: Ao max PG: LV V1 max P.0 cm/sec 4.0 mmHg 14.2 mmHg 3.7 mmHg MV E/A: 0.72 MV V2 VTI: 25.8 cm Ao mean PG: LV V1 mean PG: MV area (1 diam): 7.1 mmHg 1.3 mmHg Ao V2 mean: LV V1 mean: 7.5 cm2 119.6 cm/sec 50.1 cm/sec MVA(VTI): 2.7 cm2 Ao V2 VTI: 27.0 cm LV V1 VTI: MV Flow area 20.5 cm (1diam): 7.5 cm2 JOSE GUADALUPE(I,D): 2.6 cm2 JOSE GUADALUPE(V,D): 1.8 cm2 MR max shaun: MR(RF 1 diam): SV(MV 1 diam): PA V2 max: 545.0 cm/sec 22.8 % 194.6 ml 118.1 cm/sec MR max PG: SI(MV 1 diam): PA max P.2 mmHg 118.7 ml/m2 5.6 mmHg SV(LVOT): 70.9 ml RF(MV,Ao)(1 diam): -0.48 RF(MV,LVOT)(1diam): 0.64 Left Ventricle The left ventricle is normal in size. There is normal left ventricular wall thickness. The left ventricular ejection fraction is normal. There is Doppler evidence for diastolic dysfunction. Ejection Fraction = 78%. Right Ventricle The right ventricle is normal in size and function. Atria The left atrium is severely dilated. Right atrial size is normal. Mitral Valve There is moderate mitral valve prolapse. There is no mitral valve stenosis. There is severe mitral regurgitation. The mitral regurgitant jet is eccentrically directed. Tricuspid Valve There is trace to mild tricuspid regurgitation. Aortic Valve There is moderate aortic valve calcification. There is no aortic stenosis. There is no aortic insufficiency. Pulmonic Valve The pulmonic valve is normal in structure and function. There is no pulmonic valvular regurgitation. Great Vessels The aortic root is normal size. Pericardium/Pleural There is no pericardial effusion. Conclusion A complete two-dimensional transthoracic echocardiogram was performed (2D, M-mode, Doppler and color flow Doppler). Would consider a transesophageal echocardiogram if clinically indicated. Clinical correlation is recommended. The left ventricular ejection fraction is normal. There is Doppler evidence for diastolic dysfunction. Ejection Fraction = 78%. The left atrium is severely dilated. Right atrial size is normal. There is moderate mitral valve prolapse. There is severe mitral regurgitation. The mitral regurgitant jet is eccentrically directed. There is trace to mild tricuspid regurgitation. There is moderate aortic valve calcification. The pulmonic valve is normal in structure and function. The aortic root is normal size. There is no pericardial effusion. Would consider a transesophageal echocardiogram if clinically indicated. Clinical correlation is recommended. Final Reading Physician: Autumn Sellers signed on 01/11/2017 01:53 PM Ordering Physician: Alan Gilman Performed By: Beau Elizabeth, LATHACS
[2017-01-12] MEDS: LORazepam 1 MG TAB PO PRN (01:41)
[2017-01-12 03:44] LABS: % IMMATURE GRANULYOCYTES 0.5 % (0.0-1.1); ABSOLUTE IMMATURE GRANULOCYTES 0.03 10^3/uL (0.00-0.10); ADD DIFF? NO; ADD MORPH? NO; ADD SCAN? NO; ATYPICAL LYMPHOCYTE FLAG 0 (0-99); FRAGMENT RBC FLAG 0 (0-99); HEMATOCRIT 30.5 % (40.0-51.0); HEMOGLOBIN 10.5 g/dL (13.7-17.5); LEFT SHIFT FLG 0 (0-99); LIPEMIA HEMOLYSIS FLAG 90 (0-99); MEAN CELL HEMOGLOBIN 33.8 pg (27.9-34.1); MEAN CELL HEMOGLOBIN CONCENTR. 34.4 g/dL (32.4-36.7); MEAN CELL VOLUME 98.1 fL (81.5-99.8); MEAN PLATELET VOLUME 10.4 fL (8.7-11.7); PLATELET CLUMPS FLAG 0 (0-99); PLATELET COUNT 120 10^3/uL (150-400); RED BLOOD CELL COUNT 3.11 10^6/uL (4.40-6.38); RED CELL DISTRIBUTION WIDTH 12.8 % (11.5-15.2)
[2017-01-12 04:51] LABS: ALANINE AMINOTRANSFERASE 114 IU/L (21-72); ALKALINE PHOSPHATASE 60 IU/L (38-126); ANION GAP 5 mEq/L (8-16); ASPARTATE AMINOTRANSFERASE 258 IU/L (17-59); BILIRUBIN,TOTAL 1.1 mg/dL (0.1-1.4); CALCIUM 8.5 mg/dL (8.5-10.4); CARBON DIOXIDE 26 mEq/l (22-31); CHLORIDE 104 mEq/L (97-110); CREATININE 0.8 mg/dL (0.7-1.3); GLOMERULAR FILTRATION RATE > 60; GLUCOSE 86 mg/dL (70-100); MAGNESIUM 1.8 mg/dL (1.6-2.3); SODIUM 135 mEq/L (134-144); TOTAL PROTEIN 5.9 g/dL (6.3-8.2)
[2017-01-12 06:56] LABS: CK-MB INTERPRETATION NEGATIVE (NEGATIVE); CREATINE KINASE-MB FRACTION 9.71 ng/mL (0-3.19)
[2017-01-12] MEDS: ENOXAPARIN 40 MG/0.4 ML SYR SC SCH (08:39)
--- NOTE | 2017-01-12 14:35 | HOSPPROG ---
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 Weakness. Acute, potential etiologies include rhabdomyolysis as well as myopathy secondary to alcohol abuse -ongoing today, get MRI -give IV mag, neutra phos 2. Rhabdomyolysis. Acute, evidenced by CPK of 9000, patient reports he was down for approximately 2 days prior to seeking medical attention, improving with IV fluids -cont IV NS 3. Hyponatremia. Suspected hypovolemic hyponatremia, patient's serum sodium level has been declining despite receiving IV normal saline, it is possible that he has an SIADH component -above cap IV fluids -continue monitor serum sodium level 4. Transaminitis. Acute, secondary to alcoholism, down trending with IV fluids , continue to monitor 5. Hypertension. Chronic, hold lisinopril given worsening hyponatremia 6. Severe mitral regurgitation. Noted on TTE, no e/o failure on CXR -d/w Cards, rec BECCA, get in AM 7. Acute encephalopathy. Evidenced by global brain dysfunction characterized as scattered thought process, tangential speech, disorientation, all of which are an acute change per sister in law, most likely 2/2 metabolic encephalopathy from rhabdo, alcohol withdraw, and possible vitamin deficiency -counseled sister in law that we will eval for structural cause (MRI r/o CVA), give high dose IV thiamine -unclear trajectory, ensure that it is stabilized prior to DC, hold on DC today Diet. Regular as tolerated Prophylaxis. High risk patient, Lovenox 40 Code. Full Disposition. anticipated discharge 01/13 vs. 01/14, requires ongoing workup as outlined above. Subjective: counseled [id number] patient regarding workup for mental status changes as well as transesophageal echocardiogram Objective: Vital Signs Temp Pulse Resp BP Pulse Ox 36.5 C 89 16 125/79 H 95 01/12/17 12:00 01/12/17 12:00 01/12/17 12:00 01/12/17 12:00 01/12/17 12:00 Laboratory Results 01/12/17 03:30 01/12/17 03:30 01/11/17 01/12/17 01/13/17 05:59 05:59 05:59 Intake Total 1711 250 Output Total 300 Balance 1411 250 - Time Spent With Patient Time Spent with Patient: greater than 35 minutes Time Spent with Patient: Greater than 35 minutes spent on this patients care, greater than 50% of time spent counseling, educating, and coordinating care regarding the above mentioned plan. - Physical Exam Constitutional: no apparent distress, not in pain, chronically ill appearing, No uncomfortable Eyes: anicteric sclera, other ( constricted pupils) Cardiovascular: systolic murmur ( 4/6 at its apex), No tachycardia, No edema Respiratory: no respiratory distress, no rales or rhonchi, clear to auscultation Gastrointestinal: normoactive bowel sounds, soft, non-tender abdomen, no palpable masses Genitourinary: no bladder fullness, no bladder tenderness, no renal bruits Neurologic: weakness ( 4/5 motor strength bilateral upper and lower extremities) , other ( alert awake oriented x2 to person and time not to place), No facial droop Psychiatric: not anxious, encephalopathic, other ( potential speech, scattered thought process, redirectable), No agitated ICD10 Worksheet Patient Problems: Problems Problem Status Onset Left hip pain Acute Acute alcohol intoxication Acute Closed head injury Acute Skin tear Acute Rhabdomyolysis Acute Fall Acute Skin breakdown Acute
[2017-01-12] MEDS: MULTIVITAMINS 1 EACH TAB PO SCH (15:38)
[2017-01-12] MEDS: FOLIC ACID 1 MG TAB PO SCH (15:38)
--- NOTE | 2017-01-12 15:41 | GCON ---
[f rep st] CONSULTATION CARDIOLOGY CONSULTATION. INDICATION FOR CARDIOLOGY CONSULTATION: Moderate to severe mitral regurgitation. HISTORY OF PRESENT ILLNESS: The patient is a 76-year-old male with known past history of alcohol ab use, hypertension, and bilateral hip fractures with hip replacements. He was admitted to [facility] on January 09, 2017, from his assisted living facility, found to be trapped on the ground between his toilet and stool for what the patient reports was 38 hours. He reports he did not have any syncopal events. Reports thinking this was a mechanical fall. Prior to this, he had been in h is usual state of health. He denies any chest pain, shortness of breath, palpitations, lightheadedn ess, claudication, orthopnea, PND, edema, near syncope, or syncopal events. He reports no recent fe vers, chills, night sweats, but does report ongoing episode of fatigue, and has noted some mild dysp katarzyna on exertion. Upon arrival to the emergency department, his initial electrocardiogram showed sin us tachycardia, right bundle branch block, premature ventricular contraction. It is noted that he w as dehydrated, with BUN at 38, he also reported significant pain in his legs due to long lying on hi s side entrapped. He had rhabdomyolysis, which it was noted that his initial CPK was 9000. He was gently diuresed, and making progress with decreasing of his CPK, improvement in his BUN and in sodiu m levels. It was noted that he had a significant murmur on physical examination. Echocardiogram wa s ordered on the , which showed LVEF of 78% with no wall motion abnormalities, the LA was severe ly dilated, RA was normal in size, he was noted to have moderate mitral valve prolapse, and severe m itral regurgitation, trace to mild TR, moderate aortic calcification, aortic root is normal in size. Patient has significant cardiac risk factors that include age, sex, and reportedly late onset fami ly history of coronary artery disease, reporting father of a heart attack at age 84, also hyper tension. PAST MEDICAL HISTORY: Includes alcohol abuse, hypertension, bilateral hip fractures. PAST SURGERY: Hip replacement surgery. FAMILY HISTORY: Patient reporting family history positive for CAD with father dying of a [place] at age 84. SOCIAL HISTORY: Patient currently resides in an assisted living facility. He reports no history of tobacco abuse. The patient does have significant history of alcohol abuse, reporting that he quit drinking 3 weeks ago and has joined . 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 He had been , but he is currently . Denies any children. Does report he has 1 alive brother, who is and has children, with no known medical history. ALLERGIES: Patient reports no known drug allergies. MEDICATIONS: At home include lisinopril 5 mg p.o. daily, acetaminophen 650 mg p.o. q.h.s. p.r.n. REVIEW OF SYSTEMS: 10-point review of systems done on this patient all negative, except as mentione d above. PHYSICAL EXAMINATION: GENERAL APPEARANCE: Elderly male, alert and oriented to person, place, time, and situation. Appears to be under no acute distress. CURRENT VITAL SIGNS: Blood pressure of 125 /79, heart rate 89, respirations 16, saturating 95% on room air. Temperature of 36.5 degrees Celsiu s. HEENT: Head is normocephalic. Lips and tongue are pink and moist with no signs of cyanosis. C onjunctivae mildly jaundiced. NECK: Trachea is midline, +2 carotid pulses bilateral, no auscultate d bruits, 1-2 cm of JVD noted at 90-degree angle above sternal notch. RESPIRATORY: Lungs clear, bu t diminished in bases bilateral. No rhonchi, rales or wheezes, no accessory muscle use, no intercos alvino muscle retraction noted. CARDIAC: Regular rate, regular rhythm, S1 and S2. 4/6 systolic murmu r noted along the left sternal border. ABDOMEN: Soft, nontender, bowel sounds x4 quadrants, no org anomegaly, no palpable masses. SKIN: [place] and warm, patient noted to have dressings on skin breakd own lesions in central and left lower back, clean, dry, and intact. Patient also noted to have genoveva re ecchymoses along the left hip and thigh. VASCULAR: +2 carotids bilateral, +2 radials bilateral, +1 posterior tibial pulses bilateral. LABORATORY STUDIES: Current laboratory studies show WBC of 6.09, hemoglobin of 10.5, hematocrit 30. 5, platelet count of 120. Sodium 135, potassium 4.0, chloride 104, CO2 26, BUN 5, creatinine 0.8, g lucose 86, calcium 8.5, phosphorus 2.1, magnesium 1.8, total bilirubin 1.1, AST 258, ALT 114. CK on admission was 9067, CK-MB fraction was 44.7. Today's CK was 3115, CK-MB 9.7. Initial total protei n 5.9, albumin 3.0. TSH 2.120. This patient on admission was positive for alcohol. STUDIES: Echocardiogram as mentioned above, electrocardiogram as mentioned above. Head CT on admis kodi showed no acute intracranial hemorrhage or fracture, atrophy and white matter disease unchanged from 3 days prior. ASSESSMENT AND PLAN: 1. Severe mitral regurgitation: Patient noted to have severe murmur on physical examination, recen t echocardiogram shows mild mitral prolapse with severe mitral regurgitation. He does not appear to be in any heart failure at this time, he appears fairly euvolemic. At this time, recommend for fur ther evaluation of mitral valve. We will schedule him to undergo BECCA to be done by Dr. Blaze sanders in the [facility]. Risks and benefits of this procedure were explained to the patient. He verbalizes understanding and is wanting to proceed. 2. Rhabdomyolysis: Acute event, probably from recent long-holding stay, has improved with IV fluid , we will continue to monitor. 3. Hyponatremia: His sodium is within normal limits, he is currently on fluid restrictions set by the hospital services. 4. Hypertension: Patient with noted history of hypertension at home. His lisinopril has been on h old, his blood pressure appears to be fairly within normal limits at this time. We will continue to monitor. 5. History of alcohol abuse: Patient reports he quit 3 weeks ago, was noted to have positive alcoh ol on admission. He is currently on CIWA protocol. Thank you for this consultation. We will be glad to follow along with you. /[id number]/MODL
[2017-01-12] MEDS ORDERED: GADOBUTROL 10 ML VIAL IVP ONE (16:37)
[2017-01-12] MEDS: POTASSIUM/SODIUM PHOSPHATE 1 PKT PO SCH ×2 (18:24→21:31)
[2017-01-13 05:53] LABS: % IMMATURE GRANULYOCYTES 0.5 % (0.0-1.1); ABSOLUTE IMMATURE GRANULOCYTES 0.03 10^3/uL (0.00-0.10); ADD DIFF? NO; ADD MORPH? NO; ADD SCAN? NO; ATYPICAL LYMPHOCYTE FLAG 0 (0-99); FRAGMENT RBC FLAG 0 (0-99); HEMATOCRIT 27.9 % (40.0-51.0); LEFT SHIFT FLG 0 (0-99); LIPEMIA HEMOLYSIS FLAG 90 (0-99); MEAN CELL HEMOGLOBIN 34.6 pg (27.9-34.1); MEAN CELL HEMOGLOBIN CONCENTR. 35.8 g/dL (32.4-36.7); MEAN CELL VOLUME 96.5 fL (81.5-99.8); MEAN PLATELET VOLUME 10.2 fL (8.7-11.7); PLATELET CLUMPS FLAG 0 (0-99); PLATELET COUNT 127 10^3/uL (150-400); RED BLOOD CELL COUNT 2.89 10^6/uL (4.40-6.38); RED CELL DISTRIBUTION WIDTH 12.8 % (11.5-15.2)
[2017-01-13] MEDS ORDERED: NS 1,000 ML IV SCH (06:00)
[2017-01-13 06:20] LABS: ALANINE AMINOTRANSFERASE 90 IU/L (21-72); ALBUMIN 2.7 g/dL (3.5-5.0); ALKALINE PHOSPHATASE 53 IU/L (38-126); ANION GAP 4 mEq/L (8-16); ASPARTATE AMINOTRANSFERASE 157 IU/L (17-59); BILIRUBIN,TOTAL 0.9 mg/dL (0.1-1.4); CALCIUM 8.4 mg/dL (8.5-10.4); CARBON DIOXIDE 25 mEq/l (22-31); CHLORIDE 107 mEq/L (97-110); CREATININE 0.6 mg/dL (0.7-1.3); GLOMERULAR FILTRATION RATE > 60; GLUCOSE 88 mg/dL (70-100); POTASSIUM 3.8 mEq/L (3.5-5.2); SODIUM 136 mEq/L (134-144); TOTAL PROTEIN 5.5 g/dL (6.3-8.2)
[2017-01-13 06:37] LABS: CK-MB INTERPRETATION NEGATIVE (NEGATIVE)
[2017-01-13 06:40] LABS: CREATINE KINASE-MB FRACTION 4.04 ng/mL (0-3.19)
[2017-01-13] MEDS ORDERED: THIAMINE HCL 100 MG TAB PO SCH (09:00)
[2017-01-13] MEDS ORDERED: BENZOCAINE UNIT DOSE SPRAY HURRICAINE MM ONE (09:25)
[2017-01-13] MEDS ORDERED: fentaNYL 100 MCG/2 ML INJ IVP ONE (09:25)
[2017-01-13] MEDS ORDERED: MIDAZOLAM 2 MG/2 ML VIAL IVP ONE (09:25)
[2017-01-13] MEDS ORDERED: PROPOFOL/EMULSION 500 MG/50 ML BOTTLE IV ONE (11:02)
--- NOTE | 2017-01-13 11:54 | CPIP ---
[f rep st] INVASIVE CARDIAC PROCEDURE PROCEDURE PERFORMED: Transesophageal echocardiogram. The patient gave informed consent for transesophageal echocardiographic study and I went over the ri sks with him, which could include perforation, infection and . He understood the risks and wanted to proceed. He was then given anesthesia and the scope was passed with no complications. The procedure was done and the official report is attached. CONCLUSIONS: Severe mitral regurgitation with prolapse and question of perhaps a chordal involvemen t in addition to the mitral valve prolapse. On some views, it appears that there could be a chordal rupture. There is nothing very suggestive of endocarditis in the study. The left atrium is enlarg ed. The patient has good LV systolic function. There is an intact interatrial septum. Bubble stud y was done with no communication between the atria documented on the study. The official echocardiographic report is pending and will be attached with this record. The patient had no complications and came out of the study excellently. PLAN: Will be to discuss his case with the [facility]ve [facility], see him in clinic after he improves from h is current hospitalization and the current problems that he has that have brought him into hospital and consider for valve repair. We will have to decide if the patient is interested in this or not. He feels quite well and he can walk he says without limitation, without any other problems. His tr ansthoracic echocardiographic study showed an ejection fraction of 75%. No wall motion abnormalitie s. Severe left atrial dilatation. Right atrium normal in size. Moderate mitral valve prolapse. S evere mitral regurgitation. Trace to mild TR. Moderate aortic calcification. Aortic root was norm al in size. All his questions have been answered. /[id number]/MODL
[2017-01-13] MEDS: POTASSIUM/SODIUM PHOSPHATE 1 PKT PO SCH ×4 (12:29→21:03)
[2017-01-13] MEDS: FOLIC ACID 1 MG TAB PO SCH (12:59)
[2017-01-13] MEDS: ENOXAPARIN 40 MG/0.4 ML SYR SC SCH (12:59)
[2017-01-13] MEDS: MULTIVITAMINS 1 EACH TAB PO SCH (12:59)
--- NOTE | 2017-01-13 14:52 | SOAPPROG ---
[facility] Progress Note Assessment/Plan: Assessment: !- mitral regurgitation 2- etoh 3- Weakness 4- rhabdo he is very weak still at this point/ he has no cp he reports no excercise intolerance at all/ he has no pnd he has no pnd or orthopnea or weight gain . he has no sx of endocarditis nor do I think that is an issue for him . He has consented to [facility] to asses MR - It is not clear to me if he would consent to surgery were it offerred to him. we will follow closly. he has nothing to suggest significant chf or acute cad. we will address his valve as an outpatient and i will see him in office in 2 weeks we will at that time evaluate for cad. with his hx of etoh he may not wish to have further studies. - Plan: 01/13/17 14:54 Subjective: he has no mcp he is tired he denies sob he says he can walk routinely and not have sob or cp . he has no pleuritic cp he is very weak today Objective: Vital Signs Temp Pulse Resp BP Pulse Ox 36.7 C 91 16 141/75 H 97 01/13/17 13:54 01/13/17 13:54 01/13/17 13:54 01/13/17 13:54 01/13/17 13:54 Laboratory Results 01/13/17 05:38 01/13/17 05:38 01/12/17 01/13/17 01/14/17 05:59 05:59 05:59 Intake Total 250 Balance 250 Laboratory Tests 01/09/17 01/09/17 01/09/17 22:50 22:52 22:52 WBC 14.40 H Hct 39.6 L Plt Count Creatinine 0.9 Glucose 121 H Total Bilirubin 1.5 H Conjugated Bilirubin 0.6 H AST 405 H ALT 120 H Creatine Kinase 9067 H CK-MB (CK-2) Fraction 44.70 H CK-MB (CK-2) % 0.5 Creatine Kinase Interp NEGATIVE Lipase 99.0 TSH 01/10/17 01/11/17 01/12/17 04:23 04:18 03:30 WBC Hct Plt Count Creatinine 0.7 0.7 0.8 Glucose Total Bilirubin Conjugated Bilirubin AST ALT Creatine Kinase 5622 H 3115 H CK-MB (CK-2) Fraction 30.30 H 9.71 H CK-MB (CK-2) % 0.5 Creatine Kinase Interp NEGATIVE NEGATIVE Lipase TSH 2.210 01/13/17 01/13/17 05:38 05:38 WBC 5.78 Hct 27.9 L Plt Count 127 L Creatinine 0.6 L Glucose 88 Total Bilirubin Conjugated Bilirubin AST 157 H ALT 90 H Creatine Kinase 1133 H CK-MB (CK-2) Fraction 4.04 H CK-MB (CK-2) % Creatine Kinase Interp NEGATIVE Lipase TSH Physical Exam - Physical Exam General Appearance: mild distress Neck: supple Respiratory: rhonchi, prolonged expiration Cardiac/Chest: systolic murmur, No edema, No friction rub, No irregularly irregular Abdomen: non-tender, soft, No organomegaly Skin: warm/dry, No pallor Extremities: non-tender, No calf tenderness Neuro/Psych: abnormal gait, No alert ICD10 Worksheet Patient Problems: Problems Problem Status Onset Fall Acute Rhabdomyolysis Acute Skin breakdown Acute Acute alcohol intoxication Acute Closed head injury Acute Left hip pain Acute Skin tear Acute
--- NOTE | 2017-01-13 17:48 | HOSPPROG ---
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 Weakness. Acute, potential etiologies include rhabdomyolysis as well as myopathy secondary to alcohol abuse -MRI w/o CVA -cont lyte monitoring 2. Rhabdomyolysis. Acute, evidenced by CPK of 9000, patient reports he was down for approximately 2 days prior to seeking medical attention, improving with IV fluids 3. Hyponatremia. Suspected hypovolemic hyponatremia, patient's serum sodium level has been declining despite receiving IV normal saline, it is possible that he has an SIADH component -buffcap IV fluids -continue monitor serum sodium level 4. Transaminitis. Acute, secondary to alcoholism, down trended with IV fluids, continue to monitor 5. Hypertension. Chronic, hold lisinopril given worsening hyponatremia 6. Severe mitral regurgitation. D/w Dr. Thakur, [facility] w/ MVP and sev MR, no e/o CHF, warrants outpt monitoring, see in 2 weeks 7. Acute encephalopathy. Evidenced by global brain dysfunction characterized as scattered thought process, tangential speech, disorientation, all of which are an acute change per sister in law, most likely 2/2 metabolic encephalopathy from rhabdo, alcohol withdraw, and possible vitamin deficiency -no CVA on MRI -improving today -cont high dose IV thiamine Diet. Regular as tolerated Prophylaxis. High risk patient, Lovenox 40 Code. Full Disposition. anticipated discharge 01/14 to SNF Subjective: patient telling jokes, occasionally tearful regarding service members Objective: Vital Signs Temp Pulse Resp BP Pulse Ox 36.9 C 91 18 120/87 H 99 01/13/17 16:00 01/13/17 16:00 01/13/17 16:00 01/13/17 16:00 01/13/17 16:00 Laboratory Results 01/13/17 05:38 01/13/17 05:38 01/12/17 01/13/17 01/14/17 05:59 05:59 05:59 Intake Total 250 Balance 250 - Pending Discharge Pending Discharge Within 24 Hours: Yes Pending Discharge Date: 01/14/17 Pending Discharge Time: 11:00 - Physical Exam Constitutional: no apparent distress, not in pain, chronically ill appearing, No uncomfortable Cardiovascular: systolic murmur (IV/ at apex), edema (trace bilat LE), No irregularly irregular, No tachycardia Respiratory: no respiratory distress, no rales or rhonchi, clear to auscultation Gastrointestinal: normoactive bowel sounds, soft, non-tender abdomen, no palpable masses, No distension Psychiatric: interacting appropriately, not anxious, not encephalopathic, thought process linear ICD10 Worksheet Patient Problems: Problems Problem Status Onset Left hip pain Acute Acute alcohol intoxication Acute Closed head injury Acute Skin tear Acute Rhabdomyolysis Acute Fall Acute Skin breakdown Acute
[2017-01-13] MEDS ORDERED: MELATONIN 3 MG TAB PO PRN (22:56)
[2017-01-13] MEDS: THIAMINE HCL 500 MG in NS 100 ML IV SCH (23:24)
[2017-01-14] MEDS: ACETAMINOPHEN 325 MG TAB PO PRN (02:23)
[2017-01-14 05:31] LABS: ALANINE AMINOTRANSFERASE 84 IU/L (21-72); ALBUMIN 2.7 g/dL (3.5-5.0); ALKALINE PHOSPHATASE 53 IU/L (38-126); ANION GAP 6 mEq/L (8-16); ASPARTATE AMINOTRANSFERASE 125 IU/L (17-59); BILIRUBIN,TOTAL 1.1 mg/dL (0.1-1.4); CALCIUM 8.4 mg/dL (8.5-10.4); CARBON DIOXIDE 25 mEq/l (22-31); CHLORIDE 106 mEq/L (97-110); CREATININE 0.7 mg/dL (0.7-1.3); GLOMERULAR FILTRATION RATE > 60; GLUCOSE 82 mg/dL (70-100); SODIUM 137 mEq/L (134-144); TOTAL PROTEIN 5.4 g/dL (6.3-8.2)
[2017-01-14 07:20] VITALS: BP 98/64; PULSE 85; RESP 16; TEMP 97.9; O2SAT 95
--- NOTE | 2017-01-14 08:06 | WOCRNPDOC ---
[facility] Advanced Assessment Note - Skin Integrity Problem, Advanced Assess Upper Medial Back Dressing Type: Allevyn Life Dressing Description: Clean/Dry, Intact Exudate Amount: Scant Exudate Color: Reddish/Yellow Exudate Characteristic(s): Serosanguinous Integumentary Issue Intervention: Dressing Changed Teresa Wound Tissue: Blanching, Intact Teresa Wound Swelling: None Wound Bed Color: Red Wound Bed Constitution: Smooth Tissue Site Odor: None Site Measurement - Head-to-Toe Length X Width X Depth (cm): 6cmx3.5cmx0.1cm Skin Integrity Problem Comment: Partial-thickness abrasion on upper medial back r/t fall, 100% smooth tissue in wound bed, no apparent necrosis or swelling. Teresa-wound skin in intact and blanching. Will continue w/ topical wound care until site healed. As this injury is over a bony prominence, patient would benefit from a pressure-relieving air mattress. Sacrum Pressure Injury Dressing Type: Allevyn Life Dressing Description: Intact Exudate Amount: Minimal Exudate Color: Reddish/Yellow Exudate Characteristic(s): Serosanguinous Integumentary Issue Intervention: Dressing Changed Teresa Wound Tissue: Blanching, Erythema Teresa Wound Swelling: Mild Wound Bed Color: Red, Yellow Wound Bed Constitution: Granulation Tissue (25%), Smooth Tissue (75%), Loose Slough (in midline wound) Site Odor: None Site Measurement - Head-to-Toe Length X Width X Depth (cm): Sacrum: 3.2cmx2.8cmx0.2cm. R sacrum: 2cmx1.9cmx0.1cm Pressure Injury Stage: Stage 2 (R sacrum), Stage 3 (midline sacrum) Pressure Injury Present on Admit: Yes (r/t fall at home, down for 2+ days) Skin Integrity Problem Comment: Two pressure injuries noted over sacrum, one directly at midline and the other to the right. Midline wound has a thin layer of loose, yellow slough, indicating a full-thickness injury, a very shallow stage 3 pressure injury. R sacrum is presently a partial-thickness tissue injury , w/ friable margins. Previously there was a documented DTI to this site, which has evolved into a stage 2 injury.While there is blanching and intact skin in the immediate teresa-wound area, there continues to be a large and significant area of ecchymosis along patient's L hip and L flank r/t fall. Skin remains intact, but site should be monitored ongoing. Cleansed both wounds and reapplied dressings as ordered. Patient teaching about relieving pressure from site, off-loading when in bed if possible. Will recommend an air mattress for patient as he transitions to rehab facility.
[2017-01-14] MEDS: ENOXAPARIN 40 MG/0.4 ML SYR SC SCH (08:31)
[2017-01-14] MEDS: POTASSIUM/SODIUM PHOSPHATE 1 PKT PO SCH (08:31)
[2017-01-14] MEDS: MULTIVITAMINS 1 EACH TAB PO SCH (08:31)
[2017-01-14] MEDS: THIAMINE HCL 500 MG in NS 100 ML IV SCH (08:31)
[2017-01-14] MEDS: FOLIC ACID 1 MG TAB PO SCH (08:31)
--- NOTE | 2017-01-14 10:04 | PDIAF ---
- Diagnosis Diagnosis: Rhabdomyolysis, Severe Mitral Regurgitation Code Status: Full Code - Medication Management Discharge Medications: Medications to Continue on Transfer Folic Acid [Folic Acid 1 MG (*)] 1 mg PO DAILY tab 01/14/17 [Last Taken Unknown ] Melatonin [Melatonin 3 MG (*)] 3 mg PO HS PRN #0 tab 01/14/17 [Last Taken Unknown] Multivitamins [Multivitamin (*)] 1 each PO DAILY tab 01/14/17 [Last Taken Unknown] Thiamine HCl [B-1] 100 mg PO DAILY #30 tablet 01/14/17 [Last Taken Unknown] Italian Tutor Antibiotics: NA Discharge Medications: Refer to the Discharge Home Medication list for PRN reason. PICC Care - Routine: N/A - Orders Services needed: Registered Nurse, Certified Cap Machine Operator, Physical Therapy, Occupational Therapy, Speech Language Pathologist (cognitive therapy) Oxygen: NA Diet Recommendation: no restrictions on diet Weigh Patient: weekly Vitale: Not applicable Wound Care Instructions: Dressing change orders for sacrum and upper back: both dressings to be changed every 3 days and PRN. 1. Clean with ns and gauze. 2. Skin prep teresa wound. 3. Wound gel to wound bed. 4. Cover with Allevyn Life dressings (or other bordered foam dressings); sacral foam dressing on the sacral pressure injuries. Please place patient on a pressure-relieving air mattress or facility equivalent. Encourage him to off-load sacrum when in bed or chair. Activity/Weight Bearing Restrictions: with walker as tolerates - Labs/Radiology CMP Date: 01/24/17 Call or Fax Lab and Imaging Results to: Dr. Cade - Follow Up Care Current Providers and Referrals: JENY DUBOSE [Other] - As per Instructions Markus Thakur MD [Medical Doctor] - 02/21/17 1:30 pm Lam Cade MD [Medical Doctor] - 3 days of d/c SNF/Rehab
--- NOTE | 2017-01-14 10:15 | PDDCSUM ---
Discharge Summary Discharge Summary: DISCHARGE SUMMARY FOLLOW-UP ITEMS: Repeat complete metabolic panel in 1 week, reassess mitral valve as outpatient DATE OF ADMISSION: 01/09/2017 DATE OF DISCHARGE: 01/14/2017 DISCHARGE DIAGNOSES: 1. Acute weakness 2. Acute rhabdomyolysis 3. Acute hyponatremia 4. Acute transaminitis 5. Chronic hypertension 6. Severe mitral regurgitation 7. Acute encephalopathy 8. Acute alcohol withdrawal CONSULTATIONS: Cardiology PROCEDURES / IMAGING: Transesophageal echocardiogram demonstrating severe mitral regurgitation and mitral valve prolapse CHIEF COMPLAINT: Acute weakness, found down SUBJECTIVE: Patient reports that his weakness is improving but he still remains dependent in ADLs, patient is denying any pain PHYSICAL EXAM ON DISCHARGE: Systolic blood pressure is 120-140, heart rate 80, afebrile overnight, satting well on room air, alert awake oriented x3, cooperative and following commands, chronically ill-appearing, scattered ecchymoses, poor short-term memory as his repeating the exact same jokes he is told last 3 days LABS ON DISCHARGE: AST 125, ALT 80, creatinine 0.7, potassium 4 HOSPITAL COURSE BY PROBLEM: 1. Acute weakness. Patient presented after he was found down at assisted living , unable to get up, most likely etiology includes a combination of acute rhabdomyolysis as well as alcohol induced myopathy. The patient had an MRI which demonstrated no evidence of CVA and his weakness persisted despite electrolyte management. He has received physical and occupational therapy and he is deemed appropriate for fdc facility at this time. He will most likely require rehab prior to returning to his assisted living facility. 2. Acute rhabdomyolysis. Evidenced by CPK of 9000, secondary to down time of approximately 3 days, this resolved with IV fluids and he did not demonstrate any renal dysfunction as result of that. 3. Acute hyponatremia. Suspected hypovolemic hyponatremia in the setting of poor access to water in the setting of being down for approximately 72 hours. His serum sodium level corrected appropriately with IV fluids and remained marginally low, suggesting possible SIADH component as well. He will have a repeat complete metabolic profile as an outpatient with results to Dr. Cade. 4. Acute transaminitis. Secondary to alcoholism, treated with IV fluids, down trending, patient has reported that he will maintain sobriety moving forward. 5. Chronic hypertension. We discontinue patient's lisinopril given his hyponatremia, his systolic blood pressure was within a normal range at time of discharge, patient's blood pressure should be reassessed in the outpatient setting to determine whether she requires re-initiation of an antihypertensive. 6. Severe mitral regurgitation. Patient was noted to have a significant apical murmur and he underwent transthoracic echocardiogram demonstrating severe mitral regurgitation and then underwent transesophageal echocardiogram to further characterize. The patient was seen in consultation by Dr. Thakur and he will follow up with the patient as an outpatient, appointment currently scheduled. The patient does not currently have any evidence of congestive heart failure which would warrant immediate surgical intervention. 7. Acute encephalopathy. Evidenced by global brain dysfunction characterized as scattered thought process, tangential speech, disorientation, all of which are an acute change from his baseline per his [id number]. Most likely cause is metabolic encephalopathy in the setting of rhabdomyolysis, alcohol withdrawal , possible vitamin deficiency. Patient did receive folate, thiamine, multivitamin, these will be continued. Patient continues to have some short- term memory impairment but overall his cognitive function is improving and is safe at time of discharge. He should have outpatient cognitive therapy prior to releasing him to his assisted living facility. 8. Acute alcohol withdrawal. Patient required Ativan initially for alcohol withdrawal which may have contributed to his initial presentation. He has been weaned off of all Ativan at time of discharge is no longer experiencing withdrawal. DISCHARGE MEDICATIONS: Please see official discharge medication reconciliation sheet in chart , folate thiamine multivitamin, discontinuation of lisinopril. DISCHARGE INSTRUCTIONS: Patient should have his electrolytes rechecked as well as liver panel, results to his PCP, follow up with Dr. Thakur from Cardiology. TIME SPENT: Greater than 30 minutes were spent on direct patient care, as well as discharge planning and preparation.
== END 2017-01-14 12:05 | DRG 557 ==
LOC: EDUNIT# → OBSVTOIN 01-10 01:56 → F3E 01-10 02:35
PROVIDERS: ADMIT Hospitalist; ATTEND Hospitalist
PROC: B246ZZ4 Ultrasonography of Right and Left Heart, Transesophageal (ICD-10-PCS; principal; 2017-01-13)
DX: M62.82 Rhabdomyolysis (principal); G93.41 Metabolic encephalopathy; E87.1 Hypo-osmolality and hyponatremia; F10.230 Alcohol dependence with withdrawal, uncomplicated; R25.1 Tremor, unspecified; I34.0 Nonrheumatic mitral (valve) insufficiency; L89.152 Pressure ulcer of sacral region, stage 2; I10 Essential (primary) hypertension; Z96.643 Presence of artificial hip joint, bilateral
CPT/HCPCS: 97116-GP; 97162-GP; 97165-GO; 97530-GO; 97535-GO; A9585; G0480; G8978-GP-CK; G8979-GP-CJ; G8987-GO-CJ; G8988-GO-CI; J1650; J2060; J2704; J3411

== ENCOUNTER → 2017-06-03 | Outpatient (CLI) | payer OTHER | LOC: FIMAGING 09:32 → FLAB 09:32 → EDSTATUS 09:34 | PROVIDERS: ATTEND Family Medicine | DX: M75.02 Adhesive capsulitis of left shoulder (principal); M19.012 Primary osteoarthritis, left shoulder; Z87.81 Personal history of (healed) traumatic fracture; W18.2XXS Fall in (into) shower or empty bathtub, sequela ==

== ENCOUNTER 2017-08-30 14:18 | Observation (INO) | payer OTHER, MEDICAID ==
--- NOTE | 2017-08-30 17:24 | EDPHY ---
H & P Stated Complaint: possible hernia Time Seen by Provider: 08/30/17 17:02 HPI/ROS: Chief Complaint: Left testicular pain HPI: 77-year-old male with 3 weeks of persistent left testicular pain without swelling or redness. He was seen at [facility] this morning. There he had an ultrasound and a urinalysis which were negative. He they ordered a CT scan of his abdomen and pelvis to evaluate for possible kidney stone, diverticulitis , or hernia. They also told him that the pain did not get better he should present to the emergency department so is presenting here for evaluation. Denies fevers or chills. No nausea or vomiting. No diarrhea or constipation. No history of similar pain in the past. There are no aggravating or alleviating factors. No pain with urination or increasing urination. ROS: 10 point Review of Systems is negative except as noted in the HPI. PMH: Chronic alcohol abuse, BPH, cataracts, central hypertension, frozen shoulder, gait instability, head injury, mitral valve insufficiency, osteoarthritis, varicocele, urinary retention Social History: No smoking, positive alcohol, no recreational drug use Family History: non-contributory Physical Exam: Gen: Awake, Alert, No Distress HEENT: Nose: no rhinorrhea Eyes: PERRLA, EOMI Mouth: Moist mucosa Neck: Supple, no JVD Chest: nontender, lungs clear to auscultation Heart: S1, S2 normal, no murmur Abd: Soft, mild tenderness in the left lower quadrant, no guarding Genetal: Testes are descended. Has normal appearing scrotum, there is no erythema or swelling. Mildly tender left testicle. No palpable hydroceles. Penis appears normal. Back: no CVA tenderness, no midline tenderness Ext: no edema, non-tender Skin: no rash Neuro: CN II-XII intact, Sensation grossly intact, Strength 5/5 in bilateral upper and lower extremities - Medical/Surgical History Hx Asthma: No Hx Chronic Respiratory Disease: No Hx Diabetes: No Hx Cardiac Disease: Yes Hx Renal Disease: No Hx Cirrhosis: No Hx Alcoholism: No Hx HIV/AIDS: No Hx Splenectomy or Spleen Trauma: No Other PMH: PMH: Hypertension, TB (pt denies). PSH: bilateral hip replacements - Social History Smoking Status: Never smoked Constitutional: Initial Vital Signs Temperature (C) 36.6 C 08/30/17 14:33 Heart Rate 66 08/30/17 14:33 Respiratory Rate 18 08/30/17 14:33 Blood Pressure 140/82 H 08/30/17 14:33 O2 Sat (%) 97 08/30/17 14:33 O2 Delivery Mode Room Air Allergies/Adverse Reactions: No Known Allergies Allergy (Verified 01/09/17 22:49) Home Medications: Medication Instructions Recorded Folic Acid [Folic Acid 1 MG (*)] 1 mg PO DAILY tab 01/14/17 Melatonin [Melatonin 3 MG (*)] 3 mg PO HS PRN #0 tab 01/14/17 Multivitamins [Multivitamin (*)] 1 each PO DAILY tab 01/14/17 Thiamine HCl [B-1] 100 mg PO DAILY #30 tablet 01/14/17 Medical Decision Making - Diagnostics Imaging Results: Imaging Impressions Abdomen CT 08/30/17 18:29 Impression: 1. Fullness in the left inguinal canal, not well evaluated due to beam hardening artifact. This could reflect hernia or fluid within the inguinal canal. 2. Colonic diverticulosis, without definite diverticulitis. 3. See above report for additional findings. Results called and discussed with Azeem Sanchez M.D., on August 30, 2017 at 1918. Abdomen Ultrasound 08/30/17 19:21 Impression: Findings consistent with an inguinal hernia containing a nonreducible bowel loop. Results called and discussed with Azeem Sanchez MD on 08/30/2017 at 21:06 Imaging: Discussed imaging studies w/ call center support representative Radiologist ED Course/Re-evaluation: Patient has an incarcerated indirect inguinal hernia. I have been unable to reduce the emergency department. Will consult general surgery for surgical repair. Case discussed with Dr. Becerra, general surgery. She will admit for repair. - Data Points Laboratory Results: Laboratory Results 08/30/17 17:30 08/30/17 17:30 08/30/17 08/30/17 08/30/17 17:32 17:30 17:30 WBC 7.03 10^3/uL 10^3/uL (3.80-9.50) RBC 4.26 10^6/uL L 10^6/uL (4.40-6.38) Hgb 14.5 g/dL g/dL (13.7-17.5) POC Hgb 14.3 gm/dL gm/dL (13.7-17.5) Hct 41.1 % % (40.0-51.0) POC Hct 42 % % (40-51) MCV 96.5 fL fL (81.5-99.8) MCH 34.0 pg pg (27.9-34.1) MCHC 35.3 g/dL g/dL (32.4-36.7) RDW 13.0 % % (11.5-15.2) Plt Count 140 10^3/uL L 10^3/uL (150-400) MPV 10.3 fL fL (8.7-11.7) Neut % (Auto) 58.6 % % (39.3-74.2) Lymph % (Auto) 23.9 % % (15.0-45.0) Forest % (Auto) 11.9 % % (4.5-13.0) Eos % (Auto) 4.6 % % (0.6-7.6) Baso % (Auto) 0.7 % % (0.3-1.7) Nucleat RBC Rel Count 0.0 % % (0.0-0.2) Absolute Neuts (auto) 4.12 10^3/uL 10^3/uL (1.70-6.50) Absolute Lymphs (auto) 1.68 10^3/uL 10^3/uL (1.00-3.00) Absolute Monos (auto) 0.84 10^3/uL H 10^3/uL (0.30-0.80) Absolute Eos (auto) 0.32 10^3/uL 10^3/uL (0.03-0.40) Absolute Basos (auto) 0.05 10^3/uL 10^3/uL (0.02-0.10) Absolute Nucleated RBC 0.00 10^3/uL 10^3/uL (0-0.01) Immature Gran % 0.3 % % (0.0-1.1) Immature Gran # 0.02 10^3/uL 10^3/uL (0.00-0.10) POC Sodium 143 mEq/L mEq/L (135-145) Sodium 142 mEq/L mEq/L (135-145) POC Potassium 4.8 mEq/L mEq/L (3.3-5.0) Potassium 5.1 mEq/L mEq/L (3.5-5.2) POC Chloride 108 mEq/L mEq/L (97-110) Chloride 109 mEq/L mEq/L (97-110) Carbon Dioxide 21 mEq/l L mEq/l (22-31) Anion Gap 12 mEq/L mEq/L (8-16) POC BUN 22 mg/dL mg/dL (7-23) BUN 21 mg/dL mg/dL (7-23) Creatinine 1.1 mg/dL mg/dL (0.7-1.3) POC Creatinine 1.2 mg/dL mg/dL (0.7-1.3) Estimated GFR > 60 Glucose 81 mg/dL mg/dL (70-100) POC Glucose 83 mg/dL mg/dL (70-100) Calcium 9.4 mg/dL mg/dL (8.5-10.4) Point of Care Test Results: 08/30/17 17:32 POC Sodium 143 POC Potassium 4.8 POC Chloride 108 POC BUN 22 POC Creatinine 1.2 POC Glucose 83 Departure - Departure Disposition: [facility] Inpatient Acute Clinical Impression: Incarcerated inguinal hernia Condition: Fair Referrals: NONE *PRIMARY CARE P,. [Primary Care Provider] - As per Instructions
[2017-08-30 17:44] LABS: PLATELET COUNT 140 10^3/uL (150-400)
[2017-08-30] MEDS ORDERED: IOPAMIDOL (ISOVUE-300) 100 ML BTL ONE (18:31)
[2017-08-30] MEDS ORDERED: ceFAZolin 2 GM in D5W 100 ML IV ONE (23:03)
[2017-08-30] MEDS ORDERED: ONDANSETRON 4 MG/2 ML VIAL IVP PRN (23:04)
[2017-08-30] MEDS ORDERED: ceFAZolin 2 GM/SWFI 2 GM/20 ML SYR IVP ONE (23:30)
--- NOTE | 2017-08-30 23:32 | GHP ---
[f rep st] HISTORY AND PHYSICAL DATE OF ADMISSION: 08/30/2017 REFERRING PHYSICIAN: Joel Leger CHIEF COMPLAINT: Left incarcerated inguinal hernia. HISTORY OF PRESENT ILLNESS: Patient is a 77-year-old man with 3 weeks' of left testicular pain. He was seen by at [facility] and had a negative ultrasound. CT scan of his abdomen and pelvis was e valuated to rule out other causes of pain. He then presented to the emergency room. A CT scan showe d fluid or bowel in the inguinal canal but it was difficult to assess due to his hip arthroplasty. H e had an ultrasound obtained which showed bowel in the inguinal canal that could not be reduced. Not trae has made the pain better or worse. He is not having difficulty with nausea, vomiting, bowel mov ements or urination. PAST MEDICAL HISTORY: Alcohol abuse, BPH, hypertension, mitral valve insufficiency, urinary retentio n. PAST SURGICAL HISTORY: Surgery from wounds in the and bilateral hip arthroplasty. SOCIAL HISTORY: Denies tobacco use. He does not use drugs. FAMILY HISTORY: Noncontributory. REVIEW OF SYSTEMS: 10-point Review of Systems negative. PHYSICAL EXAM: VITAL SIGNS: 36.1, 72, 115/100, 18, 97%. GENERAL: Pleasant, well-nourished, well-g roomed man sitting up in bed, in good spirits. HEENT: Normocephalic. No gross hearing deficits. M ucous membranes moist. Pupils equal and round. No scleral icterus. LUNGS: Clear to auscultation b ilaterally. No increased work of breathing. CARDIAC: Regular rate. ABDOMEN: No obvious surgical i ncisions. Soft and nontender. GROIN: He is very tender over the left inguinal area, although it is difficult to appreciate an inguinal hernia. Both his testes are distended. : Normal male genita linda. SKIN: Warm and dry. PSYCH: Mood and affect normal. NEURO: Grossly intact. IMPRESSION AND PLAN: Patient is a 77-year-old man with an incarcerated left inguinal hernia. I will take him to the operating room for laparoscopic, possible open, left inguinal hernia repair with mes h. The risks and benefits including, but not limited to stroke, heart attack, , blood clots, in fection, bleeding, damage to surrounding structures such as bowel or bladder were discussed. He had his questions answered to his satisfaction and signed the informed consent. /[id number]/MODL
[2017-08-30] MEDS ORDERED: BUPIVACAINE 0.5% 30 ML SDV ONE (23:58)
[2017-08-31] MEDS ORDERED: ceFAZolin 2 GM/SWFI 20 ML SYR IVP ONE (02:43)
--- NOTE | 2017-08-31 02:43 | PDANEPAE ---
ANE History of Present Illness Patient presents for Inguinal hernia repair ANE Past Medical History - Cardiovascular History Hx Hypertension: Yes Hx CHF / Valvular Disease: Yes - Pulmonary History Hx Oxygen in Use at Home: No Hx Sleep Apnea: No Sleep Apnea Screening Result - Last Documented: Positive - Endocrine History Hx Diabetes: No - Chronic Pain History Chronic Pain: No ANE Review of Systems Review of Systems: ANE Patient History - Allergies Allergies/Adverse Reactions: No Known Allergies Allergy (Verified 01/09/17 22:49) - Home Medications Home medications: home medication list seen and reviewed Home Medications: Acetaminophen [Tylenol ES 500 mg (*)] 1,000 mg PO Q8H PRN 08/30/17 [Last Taken Unknown] Ibuprofen [Motrin (*)] 600 mg PO TID 08/30/17 [Last Taken 08/30/17] Lisinopril [Zestril 2.5 mg (*)] 2.5 mg PO DAILY 08/30/17 [Last Taken 08/30/17] Tamsulosin HCl [Flomax 0.4 MG (*)] 0.4 mg PO DAILY 08/30/17 [Last Taken Unknown] guaiFENesin/DEXTROMETHORPHAN [Tussin Dm Syrup] 15 - 30 ml PO Q12H PRN 08/30/17 [ Last Taken Unknown] - NPO status NPO Status: no food or drink >8 hours NPO Since - Liquids (Date): 08/30/17 NPO Since - Liquids (Time): 20:00 NPO Since - Solids (Date): 08/30/17 NPO Since - Solids (Time): 08:00 - Anes Hx Anes Hx: no prior problems - Smoking Hx Smoking Status: Never smoked ANE Labs/Vital Signs - Labs Result Diagrams: 08/30/17 17:30 08/30/17 17:30 - Vital Signs Blood Pressure: 133/86 Heart Rate: 69 Respiratory Rate: 16 O2 Sat (%): 96 Height: 162.56 cm Weight: 61.09 kg ANE Physical Exam - Airway Neck exam: FROM Mallampati Score: Class 2 Mouth exam: normal dental/mouth exam - Pulmonary Pulmonary: no respiratory distress - Cardiovascular Cardiovascular: regular rate and rhythym - ASA Status ASA Status: II, E ANE Anesthesia Plan Anesthesia Plan: general endotracheal anesthesia (RBA discussed)
[2017-08-31] MEDS ORDERED: fentaNYL 100 MCG/2 ML INJ ONE ×2 (02:45→03:28)
[2017-08-31] MEDS ORDERED: PROPOFOL 200 MG/20 ML VIAL ONE (02:45)
[2017-08-31] MEDS ORDERED: LIDOCAINE 2% 5 ML SDV ONE (02:47)
[2017-08-31] MEDS ORDERED: PHENYLEPHRINE HCL 100 MCG/ML SYR ONE (03:05)
[2017-08-31] MEDS ORDERED: DEXAMETHASONE 4 MG/ML VIAL ONE (03:07)
[2017-08-31] MEDS ORDERED: ONDANSETRON 4 MG/2 ML VIAL ONE (03:07)
[2017-08-31] MEDS ORDERED: SUGAMMADEX SODIUM 200 MG/2 ML VIAL IVP ONE (03:18)
[2017-08-31] MEDS ORDERED: HYDROCODONE/APAP 5/325 TAB PO PRN ×2 (04:09→04:19)
[2017-08-31] MEDS ORDERED: ACETAMINOPHEN 500 MG TAB PO PRN (04:10)
[2017-08-31] MEDS ORDERED: MELATONIN 3 MG TAB PO PRN (04:10)
[2017-08-31] MEDS ORDERED: oxyCODONE IR 5 MG TAB PO PRN (04:11)
--- NOTE | 2017-08-31 04:18 | POSTOPPROG ---
Post Op Note Date of Operation: 08/31/17 Surgeon: Moon Becerra Anesthesiologist: roger Anesthesia: GET(General Endotracheal) Pre-op Diagnosis: incarcerated LIH Post-op Diagnosis: Same Indication: 77 yo with left testicular pain and us with incarcerated LIH Procedure: lap LIH with mesh Findings: left INDIRECT incarcerated hernia Inf/Abcess present in the surg proc area at time of surgery?: No Specimen(s): none
[2017-08-31] MEDS ORDERED: LABETALOL HCL 5 MG/ML 20 ML MDV IVP PRN (04:19)
[2017-08-31] MEDS ORDERED: ONDANSETRON 4 MG/2 ML VIAL IVP PRN (04:19)
[2017-08-31] MEDS ORDERED: NALOXONE HCL 0.4 MG/ML INJ IVP PRN (04:19)
[2017-08-31] MEDS ORDERED: fentaNYL 100 MCG/2 ML INJ IVP PRN (04:19)
[2017-08-31] MEDS ORDERED: OXYCODONE/APAP 5/325 TAB PO PRN (04:19)
[2017-08-31] MEDS ORDERED: LR 500 ML IV PRN (04:19)
--- NOTE | 2017-08-31 04:20 | POSTANESTH ---
Post Anesthetic Evaluation Cardiovascular Status: Similar to Pre-Op Cond Respiratory Status: Similar to Pre-op Cond. Level of Consciousness/Mental Status: Can Participate in Eval Pain Control: Adequate, Prn Tx Ordered Nausea/Vomiting Control: Adequate, Prn Tx Ordered Complications Possibly Related to Anesthesia: None Noted
[2017-08-31] MEDS ORDERED: LISINOPRIL 5 MG TAB PO SCH (09:00)
[2017-08-31] MEDS ORDERED: THIAMINE HCL 100 MG TAB PO SCH (09:00)
[2017-08-31] MEDS ORDERED: FOLIC ACID 1 MG TAB PO SCH (09:00)
[2017-08-31] MEDS ORDERED: TAMSULOSIN HCL 0.4 MG CAP PO SCH (09:00)
[2017-08-31] MEDS ORDERED: IBUPROFEN 600 MG TAB PO SCH (09:00)
--- NOTE | 2017-08-31 12:18 | SOAPPROG ---
SOAP Progress Note Assessment/Plan: Assessment/Plan: 77yo M POD#1 s/p lap LIH repair Pain controlled Ambulating independently Passing flatus, +BM Voiding spontaneously Dispo: seen c Dr. Becerra. DC today. F/u 2 weeks S: feeling well this morning. pain controlled O: sitting upright in chair, comfortable, NAD No increased WOB Incisions CDI No scrotal or penile ecchymosis Objective: Vital Signs Temp Pulse Resp BP Pulse Ox 36.4 C 101 H 17 101/63 94 08/31/17 11:13 08/31/17 11:13 08/31/17 11:13 08/31/17 11:13 08/31/17 11:13 08/30/17 08/31/17 09/01/17 05:59 05:59 05:59 Intake Total 1050 250 Output Total 360 150 Balance 690 100 ICD10 Worksheet Patient Problems: Problems Problem Status Onset Acute alcohol intoxication Acute Closed head injury Acute Fall Acute Incarcerated inguinal hernia Acute Left hip pain Acute Rhabdomyolysis Acute Skin breakdown Acute Skin tear Acute
[2017-08-31 15:17] VITALS: BP 116/76; PULSE 99; RESP 16; TEMP 98; O2SAT 92
--- NOTE | 2017-08-31 15:36 | ASMTCMCOM ---
CM Note CM Note Notes: Pt had surgery for an incarcerated inguinal hernia and will DC back to [facility] today. Alisia from came to assess pt and determined he was ok to return. Final orders faxed. Pt provided a cab voucher back to . Date Signed: 08/31/2017 03:36 PM Electronically Signed By:Heaven Escalante LCSW
--- NOTE | 2017-09-01 13:54 | ASDISCHSUM ---
Discharge Information Plan Status: Medically Cleared to Leave: Discharge Date:08/31/2017 04:22 PM CM D/C Disposition: ADT D/C Disposition:Home, Routine, Self-Care Projected Discharge Date:08/31/2017 11:00 AM Transportation at D/C: Discharge Delay Reason: Follow-Up Date:08/31/2017 11:00 AM Discharge Slot: Final Diagnosis: Placement Information Referral Type:Assisted Living Residence Referral ID:[id number] Provider Name:[facility] Address 1:[address] Phone Number: Address 2:[place] Fax Number: [facility]:[place] Selection Factors: State:[place] Patient Contact Information Contact Name:GEORGIANA Relationship: Address: Work Phone: City:[place] [facility] Phone: [facility] Code:[place] Email: Financial Information Financial Class: Primary Plan Desc:MEDICARE OUTPATIENT Primary Plan Number:[id number] Secondary Plan Desc:MEDICAID HEALTH FIRST HIGH PRESSURE FIRER Secondary Plan Number:[id number] Assessment Information [facility] CM Progress Note CM Note CM Note Notes: Pt had surgery for an incarcerated inguinal hernia and will DC back to [facility] today. Alisia from came to assess pt and determined he was ok to return. Final orders faxed. Pt provided a cab voucher back to . Date Signed: 08/31/2017 03:36 PM Electronically Signed By:Heaven Escalante LCSW Intervention Information Intervention Type:*JEFFERSON-Signed Date of Service:08/31/2017 09:48 AM Patient Type:Observation Staff Member:Mayela Jade Hours: Discipline: Severity: Comment:
== END 2017-08-31 16:22 | disposition home or self-care (01) ==
LOC: F1N 22:17
PROVIDERS: ADMIT Surgery; ATTEND Surgery
PROC: 0YU64JZ Supplement Left Inguinal Region with Synthetic Substitute, Percutaneous Endoscopic Approach (ICD-10-PCS; principal; 2017-08-30)
DX: K40.30 Unilateral inguinal hernia, with obstruction, without gangrene, not specified as recurrent (principal); N50.812 Left testicular pain; N40.1 Benign prostatic hyperplasia with lower urinary tract symptoms; R33.9 Retention of urine, unspecified; I10 Essential (primary) hypertension; I34.0 Nonrheumatic mitral (valve) insufficiency; F10.21 Alcohol dependence, in remission; Z96.643 Presence of artificial hip joint, bilateral
CPT/HCPCS: 49650; 74177; 76705; 96374; 97165; 99285; C1727; C1781; G0378; G8987; G8988; G8989; J1100; J2370; J2405; J2704; J3010; Q9967; 82947-QW; J0690

== ENCOUNTER 2018-01-13 20:31 | Inpatient (IN) | payer OTHER, MEDICAID ==
[2018-01-13] MEDS ORDERED: ACETAMINOPHEN 325 MG TAB ONE (21:48)
[2018-01-13] MEDS ORDERED: ACETAMINOPHEN 325 MG TAB PO ONE (21:49)
--- NOTE | 2018-01-13 22:09 | EDPHY ---
H & P Stated Complaint: mechanical fall, left elbow and leg pain Time Seen by Provider: 01/13/18 21:09 HPI/ROS: CHIEF COMPLAINT: Left elbow pain HISTORY OF PRESENT ILLNESS: This is a 77-year-old male with a history of alcohol abuse and hypertension. He tells me that he has not had a drink for the past year. He presents tonight after falling in his bedroom. He lives in assisted living at [facility]. He fell onto his left side and has had persistent left elbow pain. He uses a walker to get about. He did not strike his head. He is not experiencing headache, neck pain, back pain, chest or abdominal pain. He came to the emergency department by ambulance. He is not taking blood thinners. REVIEW OF SYSTEMS: A ten point review of systems was performed and is negative with the exception of the items mentioned in the HPI. Past medical history: 1. Hypertension 2. Alcohol abuse Past surgical history: Bilateral hip replacement Social history: He lives in assisted living in [facility]. He does not use tobacco products. He quit drinking alcohol about a year ago. He is a retired intermediate project manager. General Appearance: Alert. Vital signs reviewed. Blood pressure 152/88. Head: Normocephalic atraumatic. Eyes: Pupils equal and round, no conjunctival injection, no discharge. Anicteric. ENT, Mouth: Mucous membranes are moist, no oropharyngeal erythema or edema. Neck: Nontender to palpation of the cervical spine in the midline. No pain with active range of motion of his neck. Respiratory: Lungs are clear to auscultation; no wheezes, rales, or rhonchi. Cardiovascular: Regular rate and rhythm; for over 6 murmur. Gastrointestinal: Abdomen is soft and nontender, no masses or organomegaly, bowel sounds normal. Pelvis: Stable. Skin: Warm and dry, no rashes on exposed skin, normal color. Scattered purple bruises over his forearms. Pulses: 2+ radial pulses bilaterally. Back: Nontender to palpation over the thoracolumbar spine. Extremities: Tender to palpation over the left elbow anteriorly. There is some swelling. Neurological: Alert and oriented. Psychiatric: Normal affect. - Personal History Current Tetanus/Diphtheria Vaccine: Yes Current Tetanus Diphtheria and Acellular Pertussis (TDAP): Yes - Medical/Surgical History Hx Asthma: No Hx Chronic Respiratory Disease: No Hx Diabetes: No Hx Cardiac Disease: Yes Hx Renal Disease: No Hx Cirrhosis: No Hx Alcoholism: No Hx HIV/AIDS: No Hx Splenectomy or Spleen Trauma: No Other PMH: PMH: Hypertension, TB (pt denies). PSH: bilateral hip replacements - Social History Smoking Status: Never smoked Constitutional: Initial Vital Signs Temperature (C) 36.8 C 01/13/18 20:43 Heart Rate 88 01/13/18 20:43 Respiratory Rate 16 01/13/18 20:43 Blood Pressure 152/88 H 01/13/18 20:43 O2 Sat (%) 96 01/13/18 20:43 O2 Delivery Mode Room Air Allergies/Adverse Reactions: No Known Allergies Allergy (Verified 01/09/17 22:49) Home Medications: Medication Instructions Recorded Folic Acid [Folic Acid 1 MG (*)] 1 mg PO DAILY tab 01/14/17 Melatonin [Melatonin 3 MG (*)] 3 mg PO HS PRN #0 tab 01/14/17 Multivitamins [Multivitamin (*)] 1 each PO DAILY tab 01/14/17 Thiamine HCl [B-1] 100 mg PO DAILY #30 tablet 01/14/17 Acetaminophen [Tylenol ES 500 mg 1,000 mg PO Q8H PRN 08/30/17 (*)] Ibuprofen [Motrin (*)] 600 mg PO TID 08/30/17 Lisinopril [Zestril 2.5 mg (*)] 2.5 mg PO DAILY 08/30/17 Tamsulosin HCl [Flomax 0.4 MG (*)] 0.4 mg PO DAILY 08/30/17 guaiFENesin/DEXTROMETHORPHAN 15 - 30 ml PO Q12H PRN 08/30/17 [Tussin Dm Syrup] Medical Decision Making - Diagnostics Imaging Results: Imaging Impressions Elbow X-Ray 01/13/18 20:56 Impression: Elbow effusion. Query occult radial neck fracture. ED Course/Re-evaluation: X-ray suggests a nondisplaced radial head fracture. He is placed in a sling. Ice was applied. He uses a walker at home and I am not sure that he will be able to ambulate with his arm in a sling. When he attempted to walk he complained of pain in the left pelvis and left leg. Pelvic x-ray suggests a left inferior pubic ramus fracture. This result was relayed to me by Dr. Macario Rogers. He recommends some additional plain films of this area. I have also re-examined the patient in the appears to have some left distal femur/knee pain. Knee x-rays are being obtained. He will likely need additional imaging of his pelvis. Given that he is unable to walk, he will need to be admitted to the hospital. His injuries are the result of a mechanical fall and are limited to a single system--orthopedics. He is being admitted to the hospitalist service. Differential Diagnosis: Considered a differential diagnosis that includes but is not limited to head injury, cervical spine or other vertebral injury, long bone injury, thoracic or abdominal injury, contusion, abrasion, laceration. - Data Points Medications Given: Discontinued Medications Acetaminophen (Tylenol) 650 mg PO EDNOW ONE Stop: 01/13/18 21:50 Last Admin: 01/13/18 21:50 Dose: 650 mg Departure - Departure Disposition: [facility] ([place], [place]) Inpatient Acute Clinical Impression: Fracture of radial head, left, closed Qualifiers: Encounter type: initial encounter Fracture alignment: nondisplaced Qualified Code(s): S52.125A - Nondisplaced fracture of head of left radius, initial encounter for closed fracture Fracture of left inferior pubic ramus Qualifiers: Encounter type: initial encounter Fracture type: closed Qualified Code(s): S32.592A - Other specified fracture of left pubis, initial encounter for closed fracture Condition: Good Referrals: NONE *PRIMARY CARE P,. [Primary Care Provider] - As per Instructions
[2018-01-13 23:50] LABS: PLATELET COUNT 116 10^3/uL (150-400)
[2018-01-13] MEDS ORDERED: ACETAMINOPHEN 325 MG TAB PO PRN (23:50)
[2018-01-13] MEDS ORDERED: ONDANSETRON 4 MG/2 ML VIAL IVP PRN (23:50)
[2018-01-14] MEDS: HYDROCODONE/APAP 5/325 TAB PO PRN ×3 (01:37→12:59)
--- NOTE | 2018-01-14 03:13 | PDGENHP ---
History and Physical - Chief Complaint Left elbow pain and left pelvic pain - History of Present Illness Source-patient provides history and is a fair historian. EMR was reviewed and case discussed with ED provider. HPI-this is a pleasant 77-year-old gentleman with past medical history significant for HTN, mitral valve insufficiency, BPH and remote history of alcohol abuse who presents emergency department this evening following a reported mechanical fall. Patient resides at [facility] where he had a shower this evening and reports that when he got out he fell down on his left side. Patient reports falling on his left elbow and left leg. He denies any loss of consciousness, lightheadedness, palpitations, headache, chest pain or shortness of breath. Patient denies any head injury or loss of consciousness. Patient states that he simply lost his balance getting out of the shower. He does not normally require use of walker or cane. Patient denies any numbness or tingling. He has a hard time describing his leg/ pelvic pain. He states that he simply has pain in his proximal leg or hip area when he stands. But he is not able to point exactly where he is feeling his pain. History Information - Allergies/Home Medication List Allergies/Adverse Reactions: No Known Allergies Allergy (Verified 01/09/17 22:49) Home Medications: Acetaminophen [Tylenol ES 500 mg (*)] 1,000 mg PO Q8H PRN 08/30/17 [Last Taken Unknown] Ibuprofen [Motrin (*)] 600 mg PO TID 08/30/17 [Last Taken 08/30/17] Lisinopril [Zestril 2.5 mg (*)] 2.5 mg PO DAILY 08/30/17 [Last Taken 08/30/17] Tamsulosin HCl [Flomax 0.4 MG (*)] 0.4 mg PO DAILY 08/30/17 [Last Taken Unknown] guaiFENesin/DEXTROMETHORPHAN [Tussin Dm Syrup] 15 - 30 ml PO Q12H PRN 08/30/17 [ Last Taken Unknown] I have personally reviewed and updated: family history, medical history, social history, surgical history - Past Medical History Additional medical history: HTN, BPH with history of urinary retention, mitral valve insufficiency, alcohol abuse in remission. - Surgical History Additional surgical history: Bilateral total hip arthroplasty, wound repairs related to service, left incarcerated inguinal hernia repair 09/03/2017 , bilateral cataract extraction with lens placement. - Family History Additional family history: Patient denies any family history of diabetes or hypertension. - Social History Smoking Status: Never smoked Alcohol Use: Sober (Patient reports that he has been sober for some time and none since arrival to assisted living facility.) Drug Use: None Additional social history: Patient resides at [facility]. Cor status- full. Patient states that his brother Giorgio and [id number] Ama in [place] are his MD POAs. Review of Systems Review of Systems: ROS: 10pt was reviewed & negative except for what was stated in HPI & below Constitutional: Reports: no symptoms. Denies: chills, fever EENMT: Reports: no symptoms Cardiac: Reports: no symptoms Respiratory: Reports: no symptoms Gastrointestinal: Reports: no symptoms Genitourinary: Reports: other (Patient reports nocturia 2-3 times nightly.). Denies: dysuria, hematuria Muscolosketal: Reports: other (See HPI) Skin: Reports: dryness (Chronic dry skin to bilateral lower legs.). Denies: rash Neurological: Reports: no symptoms. Denies: numbness, tingling Hematologic/Lymphatic: Reports: no symptoms Physical Exam Physical Exam: Selected Entries 01/13/18 01/13/18 20:43 23:15 Blood Pressure Automatic Method Heart Rate 88 99 Respiratory 16 16 Rate O2 Sat (%) 96 90 L Temperature (C) 36.8 C Blood Pressure 152/88 H 164/93 H Mean Arterial 109 H 116 H Pressure (MAP) O2 Delivery Room Air Room Air Mode Temperature Oral Source Constitutional: no apparent distress, chronically ill appearing, other (NAD. Chronically ill-appearing his thin adult gentleman is resting quietly on gurney. He does grimace intermittently with any movement of his left leg. Left arm is in a sling.) Eyes: PERRL (Bilateral lens reflex appreciated.), anicteric sclera, EOMI, No scleral injection Ears, Nose, Mouth, Throat: no oral mucosal ulcers, poor dentition, dry mucous membranes, other (No nasal discharge.) Cardiovascular: regular rate and rhythym, systolic murmur, pulses symmetric bilaterally, No tachycardia, No edema Peripheral Pulses: 1+: dorsalis-pedis (R), dorsalis-pedis (L) Respiratory: no respiratory distress, no rales or rhonchi, clear to auscultation , reduced air movement (Diminished bibasilarly.), No respiratory distress Gastrointestinal: normoactive bowel sounds, soft, non-tender abdomen, no palpable masses, No tenderness, No distension Genitourinary: no bladder tenderness, No ford in urethra Skin: warm, normal color, no rashes or abrasions, other (Dry flaky skin severely bilateral lower extremities. Chronic skin changes bilateral lower legs. Multiple varicosities bilateral lower legs.) Musculoskeletal: generalized weakness, other (Patient able to move all extremities while lying in bed. Limited with proximal left leg.), No pain with ROM Neurologic: AAOx3, sensation intact bilaterally, CN II-XII Intact, No facial droop Psychiatric: interacting appropriately, not anxious, not encephalopathic, thought process linear, other (Patient is pleasant and cooperative. He jokes intermittently.), No poor insight, No poor judgement, No poor memory Lab Data & Imaging Review 01/13/18 23:15 01/13/18 23:15 WBC 10.96 10^3/uL (3.80-9.50) H 01/13/18 23:15 RBC 4.10 10^6/uL (4.40-6.38) L 01/13/18 23:15 Hgb 13.4 g/dL (13.7-17.5) L 01/13/18 23:15 Hct 38.3 % (40.0-51.0) L 01/13/18 23:15 MCV 93.4 fL (81.5-99.8) 01/13/18 23:15 MCH 32.7 pg (27.9-34.1) 01/13/18 23:15 MCHC 35.0 g/dL (32.4-36.7) 01/13/18 23:15 RDW 13.0 % (11.5-15.2) 01/13/18 23:15 Plt Count 116 10^3/uL (150-400) L 01/13/18 23:15 MPV 11.1 fL (8.7-11.7) 01/13/18 23:15 Neut % (Auto) 81.3 % (39.3-74.2) H 01/13/18 23:15 Lymph % (Auto) 9.7 % (15.0-45.0) L 01/13/18 23:15 Hamblen % (Auto) 7.7 % (4.5-13.0) 01/13/18 23:15 Eos % (Auto) 0.4 % (0.6-7.6) L 01/13/18 23:15 Baso % (Auto) 0.3 % (0.3-1.7) 01/13/18 23:15 Nucleat RBC Rel Count 0.0 % (0.0-0.2) 01/13/18 23:15 Absolute Neuts (auto) 9.15 10^3/uL (1.70-6.50) H 01/13/18 23:15 Absolute Lymphs (auto) 1.09 10^3/uL (1.00-3.00) 01/13/18 23:15 Absolute Monos (auto) 0.87 10^3/uL (0.30-0.80) H 01/13/18 23:15 Absolute Eos (auto) 0.04 10^3/uL (0.03-0.40) 01/13/18 23:15 Absolute Basos (auto) 0.03 10^3/uL (0.02-0.10) 01/13/18 23:15 Absolute Nucleated RBC 0.00 10^3/uL (0-0.01) 01/13/18 23:15 Immature Gran % 0.6 % (0.0-1.1) 01/13/18 23:15 Immature Gran # 0.07 10^3/uL (0.00-0.10) 01/13/18 23:15 Sodium 138 mEq/L (135-145) 01/13/18 23:15 Potassium 4.4 mEq/L (3.3-5.0) 01/13/18 23:15 Chloride 106 mEq/L (97-110) 01/13/18 23:15 Carbon Dioxide 22 mEq/l (22-31) 01/13/18 23:15 Anion Gap 10 mEq/L (8-16) 01/13/18 23:15 BUN 29 mg/dL (7-23) H 01/13/18 23:15 Creatinine 0.8 mg/dL (0.7-1.3) 01/13/18 23:15 Estimated GFR > 60 01/13/18 23:15 Glucose 107 mg/dL (70-100) H 01/13/18 23:15 Calcium 8.7 mg/dL (8.5-10.4) 01/13/18 23:15 Ethyl Alcohol < 10 mg/dL (0-10) 01/13/18 23:15 Imaging Review: Left Elbow, 4 Views Indication: Elbow pain associated with limitation and/or loss of supination/ pronation/extension Comparison: None Findings: The demineralized bones are anatomically aligned. The radial neck has subtle cortical buckling on the lateral view. No discrete fracture plane. A moderate elbow effusion is evidenced by anterior and posterior fat pad sign. Impression: Elbow effusion. Query occult radial neck fracture. Portable pelvis 22:31 Indication: Left hip pain. Fall. Comparison: CT abdomen pelvis dated August 30, 2017 Findings: A nondisplaced left inferior pubic ramus fracture is new since August 2017. Sclerosis along the right inferior pubic ramus is old. The bilateral total hip arthroplasties are well seated. No perihilar hardware fracture lucency. No dislocation. Impression: Acute nondisplaced left inferior pubic ramus fracture. Left Knee, 5 Views Indication: Fall. Pain.. Technique: AP, obliques, lateral, and Merchant views. Comparison: None Findings: The demineralized bones are anatomically aligned. No fracture, joint space abnormality, or underlying bony lesion. The patella is normally aligned on the Merchant view. No effusion. Minimal arterial calcification is present in the calf and distal thigh. Impression: Demineralization. No acute fracture or effusion. Assessment & Plan Assessment: 77-year-old gentleman who had a mechanical fall at home getting in the shower now with left elbow and left pelvic pain. #Fracture of left inferior pubic ramus (Acute) - non operative injury. PT OT consulted. Orthopedics will be called in the morning for consultation as well. Consider pelvic sling if patient continues to have significant pain with mobility. #Left elbow pain-fracture versus contusion. Orthopedic surgical consult in the morning. #Mechanical fall - bed alarm. PT OT as above. Chronic medical issues #BPH - patient reports that he was previously on medications that do not help. Bladder scan if needed for any signs of retention. #Benign essential HTN - blood pressure is mildly elevated but suspect this is also related to pain. Will plan to monitor overnight continue with some pain management and resume patient's home medications once med rec has been verified. # thrombocytopenia-likely related to patient's remote history of alcohol abuse. Will continue to monitor. No evidence of active bleeding at this time. # normocytic anemia-H&H at this time appear improved from previous hospital stay. Likely component of anemia of chronic disease. Patient without any evidence of active bleeding at this time. Further evaluation with his PCP. FEN - IV fluids overnight for some gentle hydration. Patient appears clinically dry also his BUN is slightly elevated. Will hydrate and encourage oral intake in the morning. Electrolyte monitoring replacement p.r.n.. Diet as tolerated. PPX-SCDs. Holding anticoagulation at this time pending Orthopedic consultation. Cor status-full. Patient's brother Giorgio and [id number] sees ER MD SYKES. Disposition patient is admitted to observation status on the medical floor at this time pending further evaluation by Orthopedics, PT and OT.
[2018-01-14] MEDS: NS 1,000 ML IV SCH ×2 (06:13→22:41)
[2018-01-14] MEDS: ENOXAPARIN 40 MG/0.4 ML SYR SC SCH (08:42)
[2018-01-14] MEDS ORDERED: PNEUMOC 13-VAL CONJ-DIP CRM/PF 0.5 ML SYR IM ONE (13:51)
[2018-01-14] MEDS ORDERED: GUAIFENESIN/DM 10 ML UDCUP PO PRN (14:21)
[2018-01-14] MEDS ORDERED: MELATONIN 3 MG TAB PO PRN (14:21)
--- NOTE | 2018-01-14 14:25 | HOSPPROG ---
Hospitalist Progress Note Assessment/Plan: #Fracture of left inferior pubic ramus (Acute) - Ortho consulted, non-operative , Dr. Chen to see pt. Reviewed films with him and for now he advises protected weight bearing of LLE. Cont PT/OT, pain control. #Left elbow pain - Possible radial head fracture, ortho to consult, NWB with ROM as tolerated for now. #Mechanical fall - bed alarm. PT OT as above. #BPH - resume Flomax, prn bladder scans if retention symptoms #Benign essential HTN - resume home lisinopril, low dose # thrombocytopenia- possibly 2/2 etoh use, no e/o active bleeding, monitor # normocytic anemia- chronic, stable, outpt f/u PPX- Lovenox Cor status-full. Patient's brother Giorgio and [id number] sees ER MD SYKES. Dispo - change to inpt for acute PT/OT and pain control Subjective: Pt doing okay. Pain controlled. No complaints. Objective: Vital Signs Temp Pulse Resp BP Pulse Ox 36.8 C 82 16 136/81 H 91 L 01/14/18 11:34 01/14/18 11:34 01/14/18 11:34 01/14/18 11:34 01/14/18 11:34 01/13/18 01/14/18 01/15/18 05:59 05:59 05:59 Intake Total 300 Output Total 200 275 Balance 100 -275 - Physical Exam Constitutional: no apparent distress Eyes: PERRL Ears, Nose, Mouth, Throat: moist mucous membranes Cardiovascular: regular rate and rhythym Respiratory: no respiratory distress, clear to auscultation Gastrointestinal: normoactive bowel sounds, soft, non-tender abdomen Skin: warm Musculoskeletal: other (right arm in sling, sensation intact, 2+ radial pulse) Neurologic: AAOx3 Psychiatric: interacting appropriately ICD10 Worksheet Patient Problems: Problems Problem Status Onset Fracture of left inferior pubic ramus Acute Fracture of radial head, left, closed Acute Acute alcohol intoxication Acute Closed head injury Acute Fall Acute Incarcerated inguinal hernia Acute Left hip pain Acute Rhabdomyolysis Acute Skin breakdown Acute Skin tear Acute
[2018-01-14] MEDS: ACETAMINOPHEN 500 MG TAB PO SCH (14:46)
--- NOTE | 2018-01-14 14:50 | PDMN ---
Medical Necessity Medical necessity: C/M review: Patient meets INPT criteria [place] [facility] [place] Musculoskeletal disease GRG (Other specified fracture of left pubis, initial encounter for closed fracture): Acute fracture of left inferior pubic ramus ( seen on xray), - nonoperative, left elbow pain - possible radial head fracture ( seen on xray) - non weight bearing with range of motion as tolerated for now, requiring Orthopedic consult, ongoing IV NS 75 ml/hr. infusion, IV Morphine, pain management, acute inpt PT/OT, comorbid mechanical fall just prior to this admission, benign essential hypertension, thrombocytopenia possibly due to alcohol use, chronic normocytic anemia. MD anticipates > 2 MN LOS for ongoing med nec for eval and TX of above. Patient is Medicare Advantage which follows guidelines CMS puts forth.
--- NOTE | 2018-01-14 15:43 | ASMTCMCOM ---
CM Note CM Note Notes: Patient admitted after a fall at his [facility] ([facility]). He sustained a L inferior pubic ramus fracture and a possible radial head fracture. Both are non-operable. Ortho has recommended protected weight bearing of LLE. PT/OT currently recommending SNF. I spoke with patient who agrees to referral to [facility]. His friend Nasrin who was visiting him was very concerned about an appointment that patient has with Dr Tucker with [facility] on Tuesday 01/16 @ 0900. She said that it took months to schedule and she wondered if we could let patient leave hospital to attend it. ZULEIKA Phillips, called hospitalist and [facility] to see if they could consult while inpatient. We will make sure that we address this before d/c. Case Management will follow. Current Discharge plan: [facility] Date Signed: 01/14/2018 03:42 PM Electronically Signed By:Kristina Villalba RN
[2018-01-14] MEDS: LISINOPRIL 2.5 MG TAB PO SCH (16:30)
[2018-01-14] MEDS: traMADol 50 MG TAB PO PRN (22:34)
[2018-01-15] MEDS: ACETAMINOPHEN 500 MG TAB PO SCH ×4 (01:36→22:21)
[2018-01-15] MEDS: LISINOPRIL 2.5 MG TAB PO SCH (09:10)
[2018-01-15] MEDS: THIAMINE HCL 100 MG TAB PO SCH (09:10)
[2018-01-15] MEDS: FOLIC ACID 1 MG TAB PO SCH (09:10)
[2018-01-15] MEDS: TAMSULOSIN HCL 0.4 MG CAP PO SCH (09:10)
[2018-01-15] MEDS: traMADol 50 MG TAB PO PRN ×2 (09:10→17:16)
[2018-01-15] MEDS: ENOXAPARIN 40 MG/0.4 ML SYR SC SCH (09:10)
--- NOTE | 2018-01-15 09:39 | GCON ---
[f rep st] CONSULTATION DATE OF CONSULTATION: 01/15/2018 REFERRING PHYSICIAN: Joaquina Millan MD REASON FOR CONSULTATION: Left elbow and left hip injury. HISTORY OF PRESENT ILLNESS: This patient is a 77-year-old male with a history of alcohol abuse. He lives in an assisted living facility. He presented in to the ED on January 13 after falling in his bedroom. He fell on his left side, presented with left elbow pain, left leg and hip pain on bearing weight. Denies hitting his head. Was seen and evaluated by the emergency department and admitted to the Internal Medicine service. REVIEW OF SYSTEMS: 10 points are negative, except for as noted above in the HPI. PAST MEDICAL HISTORY: 1. Hypertension. 2. Alcohol abuse. PAST SURGICAL HISTORY: Status post bilateral total hip arthroplasty. SOCIAL HISTORY: Lives in assisted living and states he quit drinking alcohol a year ago. PHYSICAL EXAMINATION: GENERAL APPEARANCE: He is alert, oriented in no apparent distress. MUSCULOSKELETAL: Left elbow, there is bruising over the lateral left level. He is tender to palpation over the radial head. He has full pronation and supination with minimal pain. His range of motion with flexion extension is limited from about 40-100 degrees. This is limited by pain in the elbow. Is neurovascularly intact distally. Left lower extremity: There is minimal pain with log roll. Is neurovascularly intact distally. There is pain in the groin and hip with active hip flexion. Hip flexion and hip extension are 4/5, limited by pain. IMAGING: I review of the x-rays. The x-rays of the left elbow reveal a minimally displaced radial head fracture. X-ray of the pelvis reveals the 2 well-seated total hip arthroplasties, but there is a nondisplaced left inferior pubic ramus fracture. ASSESSMENT: Left nondisplaced radial head fracture and left nondisplaced inferior pubic ramus fracture. For the left elbow, he is to be nonweightbearing of the left upper extremity; however, I will let him bear weight bear through the olecranon and a trough walker. He should not lift anything heavy from now. He is allowed range of motion as tolerated, rotation and flexion-extension of the elbow. He may use a sling for comfort; however, the sling should be discontinued in about a week to prevent stiffness. For the left inferior pubic ramus fracture, he may be toe-touch weightbearing for now in a walker as he tolerates and we will then advance weightbearing as the patient tolerates. Will plan on repeat AP pelvis after he mobilizes with PT /[id number]/MODL MTDD
--- NOTE | 2018-01-15 13:59 | HOSPPROG ---
Hospitalist Progress Note Assessment/Plan: #Fracture of left inferior pubic ramus (Acute) - Ortho consulted, non- operative. Per ortho, protected weight bearing of LLE. Cont PT/OT, pain control. #Left elbow pain - Possible radial head fracture, ortho following, NWB with ROM as tolerated for now. #Mechanical fall - bed alarm. PT OT as above. #BPH - cont Flomax, prn bladder scans if retention symptoms. has outpt urology f/u planned, but will need to reschedule appt tomorrow. #Benign essential HTN - cont home lisinopril, low dose # thrombocytopenia- possibly 2/2 etoh use, no e/o active bleeding, monitor # normocytic anemia- chronic, stable, outpt f/u PPX- Lovenox Cor status-full. Patient's brother Giorgio and [id number]-[id number] sees ER MD SYKES. Dispo - cont inpt for acute PT/OT and pain control. PT/OT recommending SNF, likely d/c in 2 days Subjective: Pt doing ok. Pain controlled. No complaints. Objective: Vital Signs Temp Pulse Resp BP Pulse Ox 36.8 C 99 18 135/89 H 90 L 01/15/18 11:34 01/15/18 11:34 01/15/18 11:34 01/15/18 11:34 01/15/18 11:34 Laboratory Results 01/15/18 04:40 01/14/18 01/15/18 01/16/18 05:59 05:59 05:59 Intake Total 300 240 Output Total 200 1100 120 Balance 100 -1100 120 - Physical Exam Constitutional: no apparent distress Eyes: PERRL Ears, Nose, Mouth, Throat: moist mucous membranes Cardiovascular: regular rate and rhythym Respiratory: no respiratory distress Gastrointestinal: normoactive bowel sounds, soft, non-tender abdomen Skin: warm Musculoskeletal: full muscle strength Neurologic: AAOx3 Psychiatric: interacting appropriately ICD10 Worksheet Patient Problems: Problems Problem Status Onset Fracture of left inferior pubic ramus Acute Fracture of radial head, left, closed Acute Acute alcohol intoxication Acute Closed head injury Acute Fall Acute Incarcerated inguinal hernia Acute Left hip pain Acute Rhabdomyolysis Acute Skin breakdown Acute Skin tear Acute
[2018-01-16] MEDS: ACETAMINOPHEN 500 MG TAB PO SCH ×3 (06:17→22:58)
[2018-01-16] MEDS: THIAMINE HCL 100 MG TAB PO SCH (08:52)
[2018-01-16] MEDS: LISINOPRIL 2.5 MG TAB PO SCH (08:52)
[2018-01-16] MEDS: FOLIC ACID 1 MG TAB PO SCH (08:53)
[2018-01-16] MEDS: TAMSULOSIN HCL 0.4 MG CAP PO SCH (08:53)
[2018-01-16] MEDS: ENOXAPARIN 40 MG/0.4 ML SYR SC SCH (08:54)
[2018-01-16] MEDS ORDERED: BISACODYL 10 MG SUPP PR PRN (09:10)
[2018-01-16] MEDS ORDERED: MAGNESIUM HYDROXIDE 30 ML UDCUP PO PRN (09:10)
[2018-01-16] MEDS ORDERED: POLYETHYLENE GLYCOL 3350 17 GM PKT PO PRN (09:10)
[2018-01-16] MEDS ORDERED: LACTULOSE 20 GM/30 ML UDCUP PO PRN (09:10)
--- NOTE | 2018-01-16 09:13 | HOSPPROG ---
Hospitalist Progress Note Assessment/Plan: #Fracture of left inferior pubic ramus (Acute) - Ortho consulted, non- operative. Per ortho, toe touch weight bearing of LLE. Cont PT/OT, pain control. #Left elbow pain - Possible radial head fracture, ortho following, NWB with ROM as tolerated for now. Remove sling in 1 week. #Mechanical fall - bed alarm. PT OT as above. #BPH - cont Flomax, prn bladder scans if retention symptoms. has outpt urology f/u planned, but will need to reschedule Tuesday appt. #Benign essential HTN - cont home lisinopril, low dose #thrombocytopenia- possibly 2/2 etoh use, no e/o active bleeding, monitor #normocytic anemia- chronic, stable, outpt f/u PPX- Lovenox Cor status-full. Patient's brother Giorgio and [id number] sees ER MD SYKES. Dispo - cont inpt for acute PT/OT and pain control. PT/OT recommending SNF, likely d/c tomorrow Subjective: Pt doing ok, reports 5/10 pain. No other complaints. Objective: Vital Signs Temp Pulse Resp BP Pulse Ox 36.4 C 83 16 129/85 H 91 L 01/16/18 07:34 01/16/18 07:34 01/16/18 07:34 01/16/18 08:52 01/16/18 07:34 Laboratory Results 01/15/18 04:40 01/15/18 01/16/18 01/17/18 05:59 05:59 05:59 Intake Total 1040 Output Total 1100 1420 150 Balance -1100 -380 -150 - Physical Exam Constitutional: no apparent distress Eyes: PERRL Ears, Nose, Mouth, Throat: moist mucous membranes Cardiovascular: regular rate and rhythym, systolic murmur Respiratory: no respiratory distress, clear to auscultation Gastrointestinal: normoactive bowel sounds, soft, non-tender abdomen Skin: warm Musculoskeletal: full muscle strength Neurologic: AAOx3 Psychiatric: interacting appropriately ICD10 Worksheet Patient Problems: Problems Problem Status Onset Fracture of left inferior pubic ramus Acute Fracture of radial head, left, closed Acute Acute alcohol intoxication Acute Closed head injury Acute Fall Acute Incarcerated inguinal hernia Acute Left hip pain Acute Rhabdomyolysis Acute Skin breakdown Acute Skin tear Acute
[2018-01-16] MEDS: SENNOSIDES/DOCUSATE SODIUM TAB PO SCH ×2 (11:51→22:58)
--- NOTE | 2018-01-16 13:55 | ECHO ---
[email or web address] [address] Main: [phone] Fax: Transthoracic Echocardiogram Name: RENEE HENNESSY MR#: [id number] Study Date: 01/16/2018 Study Time: 12:14 PM Date of : 1940 Age: 77 year(s) Height: 162.6 cm (64 in.) Weight: 54.43 kg (120 lb.) BSA: 1.57 m2 Gender: Male Examination: Echo Indication: Elbow Fx, Cardiac: syncope, Known Murmur Image Quality: Contrast: Requested by: Joaquina Millan BP: / Heart Rate: Rhythm: Indication: Elbow Fx, Cardiac: syncope, Known Murmur Procedure Staff Para Educator: Beau Elizabeth RDCS Reading Physician: Yovani Bass MD Requesting Provider: Conclusions: Normal global systolic LV function. EF is 77 %. There is moderate Posterior Mitral Valve leaflet prolapse with moderate to severe mitral regurgitation. The MR jet is eccentrically directed. This is a known finding from the previous exam of 01/11/17. There is moderate aortic calcification with a Ao mean PG of 14 mmHg and a AvVmax of 2.1 m/s.. 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 . Measurements: Chambers Valvular Assessment AV/MV Valvular Assessment TV/PV Normal Normal Normal Name Value Range Name Value Range Name Value Range Ao Celi (MM): 3.2 cm (2.2 cm-3.7 AV Vmax: 2.17 m/s (1 m/s-1.7 PV Vmax: 0.44 m/s (0.6 m/s-0.9 cm) m/s) m/s) IVSd (2D): 1.0 cm (0.6 cm-1.1 AV maxP mmHg ( - ) PV PGmax: 1 mmHg ( - ) cm) AV meanP mmHg ( - ) LVDd (2D): 4.1 cm (4.2 cm-5.9 LVOT Vmax: 0.85 m/s (0.7 m/s-1.1 cm) m/s) LVDs (2D): 2.2 cm (2.1 cm-4 JOSE GUADALUPE (Vmax): 1.4 cm2 ( - ) cm) JOSE GUADALUPE (VTI): 1.0 cm ( - ) LVPWd (2D): 1.0 cm (0.6 cm-1 MV E Vmax: 0.74 m/s ( - ) cm) MV A Vmax: 1.00 m/s ( - ) LVOTd 2.1 cm 2.1 cm mm MV E/A: 0.74 ( - ) LVEF (2D): 77 (>=54 %) MV maxP mmHg ( - ) MV meanP mmHg ( - ) MVA (Vmax): 2.1 m/s ( - ) Continued Measurements: Chambers Valvular Assessment AV/MV Patient: RENEE HENNESSY Study Date: 01/16/2018 Page 1 of 2 12:14 PM Name Value Name Value LADs Lon.3 cm MV Annulus: 3.1 cm LA Area: 19.7 cm2 MV VTI: 22.70 cm LA Volume: 62 ml MR Vena Contracta: 0.9 cm LA Volume Index: 39.5 ml/m2 MR ERO: 0.520 cm2 MR PISA radius: 11 mm MR Reg. Volume: 48 ml MR Reg. Fraction: 28 % Findings: Left Ventricle: Normal size left ventricle. No LV hypertrophy. Normal global systolic LV function. EF is 77 %. No regional wall motion abnormality. Diastolic dysfunction is present. . Right Ventricle: Normal size right ventricle. Normal RV function. Left Atrium: The left atrium is mildly dilated. Right Atrium: The right atrium is normal in size. Mitral Valve: There is moderate Posterior Mitral Valve leaflet prolapse with moderate to severe mitral regurgitation. The MR jet is eccentrically directed. This is a known finding from the previous exam of 01/11/17. Aortic Valve: There is moderate aortic calcification with a Ao mean PG of 14 mmHg and a AvVmax of 2.1 m/s.. Tricuspid Valve: The tricuspid valve is normal in appearance and function. Pulmonic Valve: The pulmonic valve is normal in appearance and function. Aorta: The aorta is normal. Pericardium: No pericardial effusion. 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 . (No Signature Object) Patient: RENEE HENNESSY Study Date: 01/16/2018 Page 2 of 2 12:14 PM [id number]
[2018-01-16] MEDS: traMADol 50 MG TAB PO PRN (18:08)
[2018-01-17] MEDS: ACETAMINOPHEN 500 MG TAB PO SCH (05:54)
[2018-01-17] MEDS: traMADol 50 MG TAB PO PRN (05:55)
[2018-01-17] MEDS: TAMSULOSIN HCL 0.4 MG CAP PO SCH (09:37)
[2018-01-17] MEDS: SENNOSIDES/DOCUSATE SODIUM TAB PO SCH (09:37)
[2018-01-17] MEDS: ENOXAPARIN 40 MG/0.4 ML SYR SC SCH (09:37)
[2018-01-17] MEDS: THIAMINE HCL 100 MG TAB PO SCH (09:37)
[2018-01-17] MEDS: FOLIC ACID 1 MG TAB PO SCH (09:37)
[2018-01-17] MEDS: LISINOPRIL 2.5 MG TAB PO SCH (10:17)
[2018-01-17 10:19] VITALS: BP 119/68
--- NOTE | 2018-01-17 10:47 | WOCRNPDOC ---
FLOR Advanced Assessment Note - Skin Integrity Problem, Advanced Assess Coccyx Dressing Type: Allevyn Life Dressing Description: Clean/Dry, Intact Exudate Amount: Scant Exudate Color: Reddish/Yellow Exudate Characteristic(s): Serosanguinous Integumentary Issue Intervention: Dressing Removed Missy Wound Tissue: Blanching, Erythema, Denuded Wound Bed Color: [place], Red Wound Bed Constitution: Red/[place] - Non Granular Tissue Skin Integrity Problem Comment: No pressure injury present. Patient has small approximately 0.5x0.1x0.1 area of moisture related dermatitis near coccyx. Patient has had some incontinence according to RN November. Wound care will sign off. Rosi Hollingsworth RN from Wound Care Team present for care.
--- NOTE | 2018-01-17 12:13 | PDIAF ---
- Diagnosis Diagnosis: pubic ramus fracture Code Status: Full Code - Medication Management Discharge Medications: Medications to Continue on Transfer Folic Acid [Folic Acid 1 MG (*)] 1 mg PO DAILY tab 01/14/17 [Last Taken ] Melatonin [Melatonin 3 MG (*)] 3 mg PO HS PRN #0 tab 01/14/17 [Last Taken ] Multivitamins [Multivitamin (*)] 1 each PO DAILY tab 01/14/17 [Last Taken 01/13] Thiamine HCl [B-1] 100 mg PO DAILY #30 tablet 01/14/17 [Last Taken 01/13/18] Acetaminophen [Tylenol ES 500 mg (*)] 1,000 mg PO Q8H PRN 08/30/17 [Last Taken Unknown] Lisinopril [Zestril 2.5 mg (*)] 2.5 mg PO DAILY 08/30/17 [Last Taken 01/13/18] Tamsulosin HCl [Flomax 0.4 MG (*)] 0.4 mg PO DAILY 08/30/17 [Last Taken 01/13/18 ] guaiFENesin/DEXTROMETHORPHAN [Tussin Dm Syrup] 15 - 30 ml PO Q12H PRN 08/30/17 [ Last Taken Unknown] Oxymetazoline HCl [Afrin Nasal [place]] 2 spray EACHNARE BID PRN 01/14/18 [Last Taken Unknown] Tetrahydrozoline 0.05% [Visine (*)] 1 drop EACHEYE Q6HRS PRN 01/16/18 [Last Taken Unknown] Ibuprofen 400 mg PO Q8H PRN #45 tablet 01/17/18 [Last Taken Unknown] Sennosides/Docusate Sodium [Senokot-S] 1 - 2 tab PO BID tab 01/17/18 [Last Taken Unknown] Discharge Medications: Refer to the Discharge Home Medication list for PRN reason. PICC Care - Routine: N/A - Orders Services needed: Registered Nurse, Physical Therapy, Occupational Therapy Diet Recommendation: no restrictions on diet Activity/Weight Bearing Restrictions: Toe touch weight bearing LLE until f/u with ortho in 5-7 days. Non-weight bearing LUE. LUE sling for comfort ok, but remove in 1 week to prevent stiffness. Additional Instructions: Follow up with Dr. Chen, orthopedic surgery in 5-7 days. AP pelvis xray 12/19, results to Dr. Chen Follow up with Dr. Bass, cardiology, for mitral valve disease Wound Care Consult Apply Calazime to open area of dermatitis near coccyx BID and PRN. Leslie Miller RN Wound Care Team - Labs/Radiology Imaging Orders: AP pelvis film 12/19, results to Dr. Chen - Follow Up Care Current Providers and Referrals: NONE *PRIMARY CARE P,. [Unknown] - As per Instructions Erick Chen MD [Medical Doctor] - Yovani Bass MD [Medical Doctor] -
--- NOTE | 2018-01-17 14:38 | ASDISCHSUM ---
Discharge Information Plan Status:SNF Medically Cleared to Leave: Discharge Date:01/17/2018 02:21 PM D/C Disposition:[facility] Living Facility ADT D/C Disposition:Senior Living Facility Projected Discharge Date:01/17/2018 11:00 AM Transportation at D/C:Wheelchair Van Discharge Delay Reason: Follow-Up Date:01/17/2018 11:00 AM Discharge Slot: Final Diagnosis: Placement Information Referral Type:*Care Home/SNF Referral ID:[id number] Provider Name:[facility] Address 1:[address] Address 2: City:[place] Selection Factors: State:[place] Patient Contact Information Contact Name:GEORGIANA Relationship: Address: Work Phone: City:[place] John Phone: [facility] [address]/Zip Code:[place] Email: Financial Information Financial Class:Medicare Advantage Plans Primary Plan Desc:[facility] [employer] Primary Plan Number:[id number] Secondary Plan Desc:[employer] [place] Secondary Plan Number:[id number] Assessment Information [facility] CM Progress Note CM Note CM Note Notes: Patient admitted after a fall at his [facility] ([facility]). He sustained a L inferior pubic ramus fracture and a possible radial head fracture. Both are non-operable. Ortho has recommended protected weight bearing of LLE. PT/OT currently recommending SNF. I spoke with patient who agrees to referral to [facility]. His friend Nasrin who was visiting him was very concerned about an appointment that patient has with Dr Tucker with [facility] on Tuesday 01/16 @ 0900. She said that it took months to schedule and she wondered if we could let patient leave hospital to attend it. ZULEIKA Phillips, called hospitalist and [facility] to see if they could consult while inpatient. We will make sure that we address this before d/c. Case Management will follow. Current CM Discharge plan: [facility] Date Signed: 01/14/2018 03:42 PM Electronically Signed By:Kristina Villalba RN [facility] CM Progress Note CM Note CM Note Notes: Pt medically stable for d/c to [facility]. Orders sent in [employer]. [facility] scheduled w[facility] transport for 1400. ZULEIKA November called report. Date Signed: 01/17/2018 02:37 PM Electronically Signed By:JAMES Hill Intervention Information
== END 2018-01-17 14:21 | DRG 536 ==
LOC: EDUNIT# → OBSVTOIN 23:18 → F3N 01-14 00:32
PROVIDERS: ADMIT Family Medicine; ATTEND Family Medicine
DX: S32.502A Unspecified fracture of left pubis, initial encounter for closed fracture (principal); S52.125A Nondisplaced fracture of head of left radius, initial encounter for closed fracture; W18.30XA Fall on same level, unspecified, initial encounter; Y92.193 Bedroom in other specified residential institution as the place of occurrence of the external cause; I10 Essential (primary) hypertension; I34.0 Nonrheumatic mitral (valve) insufficiency; N40.0 Benign prostatic hyperplasia without lower urinary tract symptoms; F10.11 Alcohol abuse, in remission; Z96.643 Presence of artificial hip joint, bilateral
CPT/HCPCS: 97116-GP; 97162-GP; 97166-GO; 97530-GO; 97530-GP; 97535-GO; A4565; G0009; G0480; G8978-GP-CM; G8979-GP-CJ; G8987-GO-CM; G8988-GO-CK; J1650; J2270

== ENCOUNTER → 2018-01-24 | Outpatient (CLI) | payer OTHER, MEDICAID | LOC: BMCIMAGING 22:29 | PROVIDERS: ATTEND Orthopaedic Surgery Hand Surgery | DX: S32.592D Other specified fracture of left pubis, subsequent encounter for fracture with routine healing (principal); S59.902A Unspecified injury of left elbow, initial encounter; M25.422 Effusion, left elbow ==

== ENCOUNTER → 2018-02-02 | Outpatient (CLI) | payer OTHER, MEDICAID | LOC: FIMAGING 09:39 | PROVIDERS: ATTEND Orthopaedic Surgery Hand Surgery | DX: S42.455A Nondisplaced fracture of lateral condyle of left humerus, initial encounter for closed fracture (principal) ==

== ENCOUNTER → 2018-02-14 | Outpatient (CLI) | payer OTHER, MEDICAID | LOC: BMCIMAGING 13:06 | PROVIDERS: ATTEND Orthopaedic Surgery Hand Surgery | DX: S42.455D Nondisplaced fracture of lateral condyle of left humerus, subsequent encounter for fracture with routine healing (principal); S32.592D Other specified fracture of left pubis, subsequent encounter for fracture with routine healing ==

== ENCOUNTER → 2018-03-29 | Outpatient (CLI) | payer OTHER, MEDICAID | DX: S42.495D Other nondisplaced fracture of lower end of left humerus, subsequent encounter for fracture with routine healing (principal) ==

== ENCOUNTER 2018-04-22 19:26 | Emergency (ER) | payer OTHER, MEDICAID ==
[2018-04-22] MEDS ORDERED: NS 500 ML IV ONE (20:19)
--- NOTE | 2018-04-22 20:21 | EDPHY ---
H & P Stated Complaint: Fever, cough Time Seen by Provider: 04/22/18 20:07 HPI/ROS: CHIEF COMPLAINT: Fever and cough Limitations: Patient unable to provide any clinical history HISTORY OF PRESENT ILLNESS: 78-year-old male with HTN presents from [facility] with fever and cough. Ongoing cough for several days, now with fever. [facility]cern [facility] just prior to arrival because of tachycardia and elevated blood pressure. The patient tells me that he has a cough, but is not short of breath. No vomiting, new weakness or dizziness. Has been eating and drinking normally. REVIEW OF SYSTEMS: unable to reliably obtain - Personal History Current Tetanus/Diphtheria Vaccine: Yes Current Tetanus Diphtheria and Acellular Pertussis (TDAP): Yes - Medical/Surgical History Hx Asthma: No Hx Chronic Respiratory Disease: No Hx Diabetes: No Hx Cardiac Disease: Yes Hx Renal Disease: No Hx Cirrhosis: No Hx Alcoholism: No Hx HIV/AIDS: No Hx Splenectomy or Spleen Trauma: No Other PMH: PMH: Hypertension, TB (pt denies), prostate/urinary frequency,. PSH : bilateral hip replacements - Social History Smoking Status: Never smoked Alcohol Use: Sober Additional Social History: lives at [facility] - Physical Exam Exam: General Appearance: Alert, pleasant, nontoxic Eyes: Pupils equal and round, no conjunctival pallor or injection ENT, Mouth: Mucous membranes moist Neck: Normal inspection Respiratory: Rales at the left base Cardiovascular: Regular tachycardia, 2/6 systolic murmur Gastrointestinal: Abdomen is soft and nontender Neurological: A&O, nonfocal exam Skin: Warm and dry, no rash Extremities: Nontender, no pedal edema Psychiatric: Flat affect Constitutional: Initial Vital Signs Temperature (C) 37.1 C 04/22/18 19:48 Heart Rate 117 H 04/22/18 19:48 Respiratory Rate 20 04/22/18 19:48 Blood Pressure 135/88 H 04/22/18 19:48 O2 Sat (%) 92 04/22/18 19:48 O2 Delivery Mode Room Air Allergies/Adverse Reactions: No Known Allergies Allergy (Verified 01/09/17 22:49) Home Medications: Medication Instructions Recorded Folic Acid [Folic Acid 1 MG (*)] 1 mg PO DAILY tab 01/14/17 Melatonin [Melatonin 3 MG (*)] 3 mg PO HS PRN #0 tab 01/14/17 Multivitamins [Multivitamin (*)] 1 each PO DAILY tab 01/14/17 Thiamine HCl [B-1] 100 mg PO DAILY #30 tablet 01/14/17 Acetaminophen [Tylenol ES 500 mg 1,000 mg PO Q8H PRN 08/30/17 (*)] Lisinopril [Zestril 2.5 mg (*)] 2.5 mg PO DAILY 08/30/17 Tamsulosin HCl [Flomax 0.4 MG (*)] 0.4 mg PO DAILY 08/30/17 guaiFENesin/DEXTROMETHORPHAN 15 - 30 ml PO Q12H PRN 08/30/17 [Tussin Dm Syrup] Oxymetazoline HCl [Afrin Nasal 2 spray EACHNARE BID PRN 01/14/18 [place]] Tetrahydrozoline 0.05% [Visine (*)] 1 drop EACHEYE Q6HRS PRN 01/16/18 Ibuprofen 400 mg PO Q8H PRN #45 tablet 01/17/18 Sennosides/Docusate Sodium 1 - 2 tab PO BID tab 01/17/18 [Senokot-S] levOFLOXACIN [levAQUIN (*)] 750 mg PO DAILY #9 tab 04/22/18 Medical Decision Making - Diagnostics Imaging Results: CXR: cardiomegaly, no definite infiltrate Imaging: I viewed and interpreted images myself ED Course/Re-evaluation: This pt presents with recurrent fever and cough. Possibly had pneumonia 3 weeks ago. ED RN called [facility] staff, not on abx now, and their main concern was elevated BP and tachycardia. Pt's BP slightly high, though not concerning in ED. Tachycardia quickly resolved with IVF. CXR does not reveal an obvious infiltrate. Will treat with Levaquin for suspected pneumonia, given advanced age, cough and fever. I feel that he is safe/stable for d/c back to [facility]. Encouraged increased oral fluids. Differential Diagnosis: includes though not limited to PE, pneumonia, respiratory failure, pulm edema - Data Points Laboratory Results: Laboratory Results 04/22/18 17:30 04/22/18 17:30 Microbiology Results: MICROBIOLOGY 04/22/18 20:00 Blood Blood Culture - Preliminary Gram Negative Darius 04/22/18 20:15 Blood Blood Culture - Preliminary Gram Negative Darius 04/22/18 20:15 Blood Blood Panel (PCR) - Final No Organism Detected 04/22/18 20:45 Nasal, Sinus - Swab Respiratory Panel (PCR) - Final No Organism Detected Medications Given: Discontinued Medications Sodium Chloride (Ns) 500 mls @ 1,000 mls/hr IV EDNOW ONE PRN Reason: Protocol Stop: 04/22/18 20:48 Last Admin: 04/22/18 20:42 Dose: 500 mls Levofloxacin (Levaquin) 750 mg PO EDNOW ONE PRN Reason: Protocol Stop: 04/22/18 21:14 Last Admin: 04/22/18 21:45 Dose: 750 mg Departure - Departure Disposition: Home, Routine, Self-Care Clinical Impression: Pneumonia Qualifiers: Pneumonia type: due to unspecified organism Laterality: unspecified laterality Lung location: unspecified part of lung Qualified Code(s): J18.9 - Pneumonia, unspecified organism Condition: Good Instructions: Bacterial Pneumonia (ED) Additional Instructions: Tylenol 650 mg every 4 hr as needed for fever. Drink plenty of fluids. Referrals: Socorro Morris MD [[facility] Primary Care Provider] - As per Instructions Prescriptions: levOFLOXACIN [levAQUIN (*)] 750 mg PO DAILY #9 tab
[2018-04-22 20:31] LABS: INR 1.18 (0.83-1.16); PROTIME(PATIENT) 15.2 SEC (12.0-15.0)
[2018-04-22 20:32] LABS: PLATELET COUNT 120 10^3/uL (150-400)
[2018-04-22 22:18] VITALS: BP 135/89
== END 2018-04-22 22:18 | disposition home or self-care (01) ==
LOC: EDUNIT#
DX: R50.9 Fever, unspecified (principal); R05 Cough; I10 Essential (primary) hypertension; I51.7 Cardiomegaly; I70.0 Atherosclerosis of aorta
CPT/HCPCS: G0480

== ENCOUNTER → 2018-04-26 | Outpatient (CLI) | payer OTHER, MEDICAID | LOC: BMCIMAGING 08:05 | PROVIDERS: ATTEND Orthopaedic Surgery Hand Surgery | DX: S42.432D Displaced fracture (avulsion) of lateral epicondyle of left humerus, subsequent encounter for fracture with routine healing (principal) ==

== ENCOUNTER → 2018-08-11 | Outpatient (CLI) | payer OTHER, MEDICAID | LOC: FIMAGING 08:18 | PROVIDERS: ATTEND Internal Medicine Hematology & Oncology | DX: R93.6 Abnormal findings on diagnostic imaging of limbs (principal) | CPT/HCPCS: 78306; A9503 ==